=== PATIENT | male | born 1960 | race Caucasian/White ===

== ENCOUNTER 2017-08-13 08:29 | Inpatient (IN) | payer OTHER ==
[~2017-08-13] VITALS: Ht 180.3 cm; Wt 134.9 kg
[~2017-08-13 08:29] MED LIST: AMARYL4 M1 PO; ANAPROX DS1 TAB PO; ATORVASTATIN CA10 MG PO; GLUCOPHAGE500 MG PO; JANUVIA100 M1 PO; LOPRESSOR 25MG25 MG PO; NEURONTIN300 MG PO; VITAMIN B COMPL1 CAP PO; VITAMIN D31000 UNI2 PO
--- NOTE | 2017-08-13 08:46 | ED GENERAL ADULT ---
History of Present Illness General Chief Complaint: General Adult Stated Complaint: "MY RT HEEL IS BLACK" Source: patient, family Exam Limitations: no limitations Vital Signs & Intake/Output Vital Signs & Intake/Output Vital Signs Date Time Temp Pulse Resp B/P B/P Pulse O2 O2 Flow FiO2 Mean Ox Delivery Rate 08/13 1918 97.9 97 20 176/96 99 Nasal 2.0L Cannula 08/13 1406 98.8 81 20 128/70 93 Room Air 08/13 1333 162/86 08/13 1328 100.0 89 20 179/86 98 Room Air 08/13 1050 75 18 180/96 97 Room Air 08/13 0834 97.6 88 18 137/71 96 Room Air Allergies Coded Allergies: NO KNOWN ALLERGIES (07/25/13) Reconcile Medications Cholecalciferol (Vitamin D3) 1,000 UNIT TABLET 1 TAB PO DAILY VITAMIN SUPPORT (Reported) Clopidogrel Bisulfate (Clopidogrel) 75 MG TABLET 1 TAB PO DAILY BLOOD THINNER (Reported) Glimepiride (Amaryl) 4 MG TABLET 1 TAB PO DAILY DIABETES (Reported) Lisinopril (Prinivil) (Unknown Strength) TABLET (Unknown Dose) PO DAILY HTN ( Reported) Sitagliptin Phosphate (Januvia) 100 MG TABLET 1 TAB PO DAILY DIABETES ( Reported) Triage Note: PT STATES THAT HE HAS NEUROPATHY AND THAT HE HAS BEEN SEEING A VASCULAR DR IN [place] AND THAT HE FEELS THE R FOOT IS NOT GETTING BETTER , STATES THAT HE HAS AN OPEN WOUND , STATES THAT THE DOCTOR CLEANED IT OUT , PT STATES THAT HE HAS A CRATER NOW WITH FOUL ODOR Triage Nurses Notes Reviewed? yes Onset: Abrupt Duration: day(s): Timing: recent history HPI: 08/13/17 57-year-old male with past medical history of diabetes and peripheral vascular disease presents to the emergency department with pain and foul-smelling discharge from his right heel. According to the patient he has a history of diabetes and has an ulcer that has been progressively getting larger and now it is foul-smelling. He denies fever. Past History Travel History Traveled to [place] past 21 day No Medical History Any Pertinent Medical History? 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 FATHER Relation not specified for: FH: diabetes mellitus Hx Contributory? No Review of Systems Review of Systems Constitutional: Denies: fever. EENTM: Reports: no symptoms. Respiratory: Reports: no symptoms. Cardiovascular: Reports: no symptoms. GI: Reports: no symptoms. Genitourinary: Reports: no symptoms. Musculoskeletal: Reports: see HPI. Skin: Reports: see HPI. Neurological/Psychological: Reports: no symptoms. Hematologic/Endocrine: Reports: no symptoms. Immunologic/Allergic: Reports: no symptoms. Physical Exam Physical Exam General Appearance: alert, awake, anxious, moderate distress Head: atraumatic, normal appearance Eyes: Bilateral: normal appearance (yes by MEANS), PERRL, EOMI. Ears, Nose, Throat: normal pharynx (all to the thrombin) Neck: normal inspection, supple Respiratory: normal breath sounds, chest non-tender, no respiratory distress Cardiovascular: regular rate/rhythm Peripheral Pulses: 2+ dorsalis pedis (R) Gastrointestinal: soft, non-tender Back: normal range of motion Extremities: pedal edema Neurologic/Psych: no motor/sensory deficits, awake, alert, oriented x 3 Skin: ulcer Comments: 08/13/17 10 AM The patient has decreased sensation to the lower extremities bilaterally. He has bilateral lower extremity edema. He has normal capillary refill, less than 2 seconds to both feet. He does have bilateral dorsalis pedis pulses. On the right foot. He has a 2 cm necrotic ulceration on the lateral aspect of his right heel. It is foul-smelling. He also has swelling of the ankle. Core Measures ACS in differential dx? No CVA/TIA Diagnosis: No Sepsis Present: No Sepsis Focused Exam Completed? No Progress Differential Diagnoses I considered the following diagnoses in my evaluation of the patient: [ Osteomyelitis, peripheral vascular disease, gangrenous ulcer] Plan of Care: Orders Procedure Date/time Status MRI-RT FOOT W/O LIAN 08/14 1216 Active CBC WITHOUT DIFFERENTIAL 08/14 0600 Active BASIC ELECTROLYTES PLUS BUN&CR 08/14 0600 Active Nothing by Mouth 08/13 D Active EXTREMETIES OR SPEC 08/13 1804 Active PATHOLOGY SPECIMEN 08/13 1744 Active EKG 08/13 1700 Active Weight 08/13 1423 Active Vital Signs 08/13 1423 Active Teach/Educate 08/13 1423 Active Pain Treatment and Response 08/13 1423 Active Nutritional Intake, Monitor 08/13 1423 Active Isolation 08/13 1423 Active Intake & Output 08/13 1423 Active Patient Care Conference 08/13 1423 Active Activity/Ambulation 08/13 1423 Active FingerStick- Glucose 08/13 1335 Active Pathway - chart 08/13 1323 Active House Staff 08/13 1323 Active Code Status 08/13 1323 Active Intake & Output 08/13 1256 Active Patient Data 08/13 1254 Active ED Holding Orders 08/13 1250 Active Admit to inpatient 08/13 1250 Active Vital Signs 08/13 1250 Active Code Status 08/13 1250 Complete BLOOD CULTURE 08/13 0947 Active WESTERGREN SED RATE 08/13 0906 Complete COMPREHENSIVE METABOLIC PANEL 08/13 0906 Complete CBC WITHOUT DIFFERENTIAL 08/13 0906 Complete Current Medications Sig/Sherita Start time Last Medication Dose Stop Time Status Admin Amlodipine Besylate 5 MG DAILY 08/14 1000 AC (Norvasc) Clopidogrel Bisulfate 75 MG DAILY 08/14 1000 AC (Plavix) Ampicillin Sodium/ 3,000 MG Q8 08/13 2200 AC 08/13 Sulbactam Sodium 2101 (Unasyn) Sodium Chloride 100 ML (Normal Saline 0.9%) Insulin Aspart 0 TIDAC 08/13 1700 AC (NovoLOG) Acetaminophen 325 MG Q6P PRN 08/13 1515 AC (Tylenol) Sodium Chloride 1,000 ML Q13H 08/13 1515 AC 08/13 (Half Normal Saline) 1612 Heparin Sodium 5,000 UNIT Q8 08/13 1400 AC 08/13 (Porcine) 2058 Laboratory Tests 08/13/17 0930: Anion Gap 14, Estimated GFR 42 L, BUN/Creatinine Ratio 25.9 H, Glucose 131 H, Calcium 9.2, Total Bilirubin 0.5, AST 17, ALT 30, Alkaline Phosphatase 68, Total Protein 6.8, Albumin 3.5, Globulin 3.3, Albumin/Globulin Ratio 1.1, CBC w Diff NO MAN DIFF REQ, RBC 3.77 L, MCV 83.9, MCH 27.8, MCHC 33.2, RDW 14.2, MPV 7.4, Gran % 86.6 H, Lymphocytes % 6.9 L, Monocytes % 5.3, Eosinophils % 0.6, Basophils % 0.6, Absolute Granulocytes 8.8 H, Absolute Lymphocytes 0.7 L, Absolute Monocytes 0.5, Absolute Eosinophils 0.1, Absolute Basophils 0.1, ESR Westergren 110 H Microbiology 08/13 1799 EXTREMITIE: Gross Specimen Examination - RECD 08/13 1799 EXTREMITIE: Gram Stain - RECD 08/13 954 BLOOD: Blood Culture - RECD 08/13 949 BLOOD: Blood Culture - RECD Initial ED EKG: none Departure Departure Disposition: STILL A PATIENT Condition: Stable Clinical Impression Primary Impression: Infected stasis ulcer of right lower extremity Secondary Impressions: Diabetes mellitus, Peripheral vascular disease Referrals: Jonny Terrazas MD Departure Forms: Customer Survey General Discharge Information Admission Note Spoke With: Lebron LOWE,Dania Documentation of Exam: Documentation of any treatments & extenuating circumstances including Concerns Regarding Discharge (functional status, medication knowledge or non-compliance, living conditions, etc.) that warrant an admission rather than observation: [The patient is being admitted for podiatry consult, debridement of infected ulcer, operative care and possible IV antibiotics,] Critical Care Note Critical Care Note Critical Care Time: non-applicable
[2017-08-13] MEDS ORDERED: CLOPIDOGREL75 M1 PO (09:39)
[2017-08-13 09:40] LABS: ABSOLUTE BASOPHIL COUNT 0.1 /CUMM (0.0-0.2); ABSOLUTE EOSINOPHIL COUNT 0.1 /CUMM (0.0-0.7); ABSOLUTE GRANULOCYTE CT 8.8 /CUMM (1.4-6.5); ABSOLUTE LYMPH COUNT 0.7 /CUMM (1.2-3.4); ABSOLUTE MONOCYTE COUNT 0.5 /CUMM (0.10-0.60); BASOPHIL % 0.6 % (0.0-2.0); EOSINOPHIL % 0.6 % (0-5); HEMATOCRIT 31.6 % (42-52); MEAN CORPUSCULAR HGB 27.8 PG (27.0-31.0); MEAN CORPUSCULAR HGB CONC 33.2 G/DL (33.0-37.0); MEAN CORPUSCULAR VOLUME 83.9 FL (80.0-94.0); MEAN PLATELET VOLUME 7.4 FL (7.4-10.4); PLATELET COUNT 292 /CUMM (130-400); RBC DISTRIBUTION WIDTH 14.2 % (11.5-14.5); RED BLOOD CELL CT 3.77 /CUMM (4.70-6.10); WHITE BLOOD CELL COUNT 10.1 /CUMM (4.8-10.8)
[2017-08-13 09:56] LABS: GRANULOCYTE % 86.6 % (42.2-75.2)
--- NOTE | 2017-08-13 10:01 | RADIOLOGY REPORT ---
EXAMINATION: XR FOOT, RIGHT CLINICAL INFORMATION: Foot ulcer COMPARISON: None TECHNIQUE: Right foot, 3 views FINDINGS: The specific site of the ulcer is not marked on the radiographs. Query whether patient has a superficial ulcer at the heel; there appears to be a skin defect in this location. There are prominent enthesophytes of the calcaneus. Bones have normal alignment and joint spaces are maintained. No fracture, subluxation, osseous erosion or periostitis. Soft tissues are swollen throughout the ankle and foot. Peripheral vessels are calcified. IMPRESSION: 1. No evidence of osteomyelitis within the right foot. 2. Diffuse soft tissue swelling of the foot and ankle. 3. Peripheral vascular disease.
[2017-08-13] MEDS ORDERED: PRINIVIL20 M1 PO (13:03)
--- NOTE | 2017-08-13 13:27 | History & Physical ---
Carlton LOWE,[facility] 08/13/17 1326: General Information and HPI MD Statement: I have seen and personally examined JUANITO PERDOMO and documented this H&P. The patient is a 57 year old M who presented with a patient stated chief complaint of [right ankle swelling, warmth, and tenderness]. Source of Information: patient, old records Exam Limitations: no limitations History of Present Illness: 57-year-old male with PMH of NIDDM, HTN, and PVD presents with a chief complaint of right heel ulcer surrounded by erythema and swelling. 3 months ago he noticed multiple small ulcer on his right heel, he was told that these are 2/2 diabetes or peripheral vascular disease. He was sent to vascular service after which she was admitted to [facility] for further workup, he went through some vascular procedure to dilate his artery but he is not sure if stents were placed. For the past month and a half he's been complaining of progressive right heel pain, swelling, warmth and erythema. His right heel ulcer increased in size and that, recently it became black in color with foul-smelling discharge. He denies fever or chills. Allergies/Medications Allergies: Coded Allergies: NO KNOWN ALLERGIES (07/25/13) Home Med list Cholecalciferol (Vitamin D3) 1,000 UNIT TABLET 1 TAB PO DAILY VITAMIN SUPPORT (Reported) Clopidogrel Bisulfate (Clopidogrel) 75 MG TABLET 1 TAB PO DAILY BLOOD THINNER (Reported) Glimepiride (Amaryl) 4 MG TABLET 1 TAB PO DAILY DIABETES (Reported) Lisinopril (Prinivil) (Unknown Strength) TABLET (Unknown Dose) PO DAILY HTN ( Reported) Sitagliptin Phosphate (Januvia) 100 MG TABLET 1 TAB PO DAILY DIABETES ( Reported) Past History Travel History Traveled to [place] past 21 day No Medical History Neurological: NONE EENT: NONE Cardiovascular: CHF, hypertension Respiratory: NONE Gastrointestinal: NONE Hepatic: NONE Renal: NONE Musculoskeletal: NONE Psychiatric: NONE Endocrine: diabetes Blood Disorders: NONE Cancer(s): 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 FATHER Relation not specified for: FH: diabetes mellitus Psychosocial History Services at Home: None ETOH Use: occasional use Illicit Drug Use: denies illicit drug use Review of Systems Review of Systems Constitutional: Denies: chills, diaphoresis, fever, weakness. EENTM: Denies: visual changes, hearing changes. Cardiovascular: Reports: peripheral edema. Denies: chest pain, orthopena, palpitations, syncope. Respiratory: Denies: cough, short of breath, wheezing. GI: Denies: constipation, diarrhea, nausea, vomiting. Genitourinary: Denies: dysuria. Musculoskeletal: Denies: back pain. Skin: Reports: erythema (on right feet). Exam & Diagnostic Data Last 24 Hrs of Vital Signs/I&O Vital Signs Date Time Temp Pulse Resp B/P B/P Pulse O2 O2 Flow FiO2 Mean Ox Delivery Rate 08/13 1406 98.8 81 20 128/70 93 Room Air 08/13 1333 162/86 08/13 1328 100.0 89 20 179/86 98 Room Air 08/13 1050 75 18 180/96 97 Room Air 08/13 0834 97.6 88 18 137/71 96 Room Air Intake & Output 08/13 1600 08/13 0800 08/13 0000 Intake Total 0 Output Total Balance 0 Intake, Oral 0 Patient 133.81 kg Weight Weight Reported by Patient Measurement Method Physical Exam General Appearance Alert, Oriented X3, Cooperative, No Acute Distress Skin 4X5 cm right heel ulcer over the lateral side, surrounded by erythema and swelling. Warm right leg up to the knee HEENT Atraumatic, PERRLA, EOMI, Mucous Membr. moist/pink Neck No JVD Cardiovascular Regular Rate, Normal S1, Normal S2, No Murmurs Lungs Clear to Auscultation, Normal Air Movement Abdomen Soft, No Tenderness Neurological Normal Speech Extremities No Clubbing, No Cyanosis, right leg swelling. Right heel ulcer Last 24 Hrs of Labs/Pb: Laboratory Tests 08/13/17 0930: Anion Gap 14, Estimated GFR 42 L, BUN/Creatinine Ratio 25.9 H, Glucose 131 H, Calcium 9.2, Total Bilirubin 0.5, AST 17, ALT 30, Alkaline Phosphatase 68, Total Protein 6.8, Albumin 3.5, Globulin 3.3, Albumin/Globulin Ratio 1.1, CBC w Diff NO MAN DIFF REQ, RBC 3.77 L, MCV 83.9, MCH 27.8, MCHC 33.2, RDW 14.2, MPV 7.4, Gran % 86.6 H, Lymphocytes % 6.9 L, Monocytes % 5.3, Eosinophils % 0.6, Basophils % 0.6, Absolute Granulocytes 8.8 H, Absolute Lymphocytes 0.7 L, Absolute Monocytes 0.5, Absolute Eosinophils 0.1, Absolute Basophils 0.1, ESR Westergren 110 H Microbiology 08/13 954 BLOOD: Blood Culture - RECD 08/13 949 BLOOD: Blood Culture - RECD Assessment/Plan Assessment: 57-year-old male with a past medical history of diabetes, hypertension, peripheral vascular disease status post vascular procedure most likely stenting who presented complaining of 45 days of progressive right heel ulcer that's painful and with foul-smelling discharge. On exam he had right ankle ulcer that 's a rounded with erythematous, swelling and tenderness that most likely represent cellulitis. It's not clear if he has osteomyelitis but given the length of his symptom will need to be excluded. He is scheduled for podiatry procedure later today. We will hold off antibiotic to increase the sensitivity of the bone culture. The patient was started 3 days ago on lisinopril for blood pressure control, he was found to have creatinine of 1.7 which was normal a week ago. #Right ankle ulcer with swelling up to the knee with possible ankle osteomyelitis * We will admit to general medicine floor * We will keep nothing by mouth for I&D and possible plan culture later today * We will add ESR to be used as a baseline * MRN bite to the right ankle * We will consult ID for antibiotic recommendation * We will rule out DVT with LE Doppler. #NIDDM * Diabetic diet * Fingerstick glucose level * We will hold all oral antihyperglycemic medication and start insulin sliding scale #HTN/JAZMIN * Creatinine is up to 1.7 from normal last week, this could be secondary to starting lisinopril 3 days ago. Given the peripheral artery disease it's possible that he has renal artery stenosis. * For now we will hold lisinopril * We will control blood pressure with amlodipine * IV fluid and total tolerate oral * Repeat renal function daily #PVD * The patient has peripheral artery procedure done 45 days ago, he is not sure what kind of procedure exactly of from the way he described it looks like the was stenting. * We will obtain records from [facility] * We will continue clopidogrel As Ranked By This Provider Problem List: 1. Acute kidney injury 2. Hypertension 3. 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
[2017-08-13 14:06] VITALS: BP 128/70
--- NOTE | 2017-08-13 15:05 | PN- Att Addend ---
Attending Addendum Attending Brief Note 57-year-old male with past medical history significant for diabetes, hypertension, chronic diastolic CHF, peripheral vascular disease and as reported by patient status post either stents or balloon in right lower extremity who presented with unhealing right foot wound. Would start approximately 3 months ago. He claims that he has followed with his doctor. Over the course of time it has gotten worse. Now he has a wound on the right heel with surrounding area erythematous, right lower extremity is slightly erythematous with warmth. Patient denies having any fevers. He has neuropathy in bilateral lower extremities but still complains of pain around that area of the wound. Podiatry was consulted from the emergency room and they agreed to take the OR today for debridement. Vital Signs Date Time Temp Pulse Resp B/P B/P Pulse O2 O2 Flow FiO2 Mean Ox Delivery Rate 08/13 1406 98.8 81 20 128/70 93 Room Air 08/13 1333 162/86 08/13 1328 100.0 89 20 179/86 98 Room Air 08/13 1050 75 18 180/96 97 Room Air 08/13 0834 97.6 88 18 137/71 96 Room Air on exam; aox3, nad. cv; s1,s2, rrr resp; clear abd; soft, nt, bs+ ext; no edema, Laboratory Tests 08/13 0930 Chemistry Sodium (137 - 145 mmol/L) 138 Potassium (3.5 - 5.1 mmol/L) 4.7 Chloride (98 - 107 mmol/L) 100 Carbon Dioxide (22 - 30 mmol/L) 23 Anion Gap (5 - 16) 14 BUN (9 - 20 mg/dL) 44 H Creatinine (0.7 - 1.2 mg/dL) 1.7 H Estimated GFR (>60 ml/min) 42 L BUN/Creatinine Ratio (7 - 25 %) 25.9 H Glucose (65 - 99 mg/dL) 131 H Calcium (8.4 - 10.2 mg/dL) 9.2 Total Bilirubin (0.2 - 1.3 mg/dL) 0.5 AST (17 - 59 U/L) 17 ALT (21 - 72 U/L) 30 Alkaline Phosphatase (< 127 U/L) 68 Total Protein (6.3 - 8.2 g/dL) 6.8 Albumin (3.5 - 5.0 g/dL) 3.5 Globulin (1.9 - 4.2 gm/dL) 3.3 Albumin/Globulin Ratio (1.1 - 2.2 %) 1.1 Hematology CBC w Diff NO MAN DIFF REQ WBC (4.8 - 10.8 /CUMM) 10.1 RBC (4.70 - 6.10 /CUMM) 3.77 L Hgb (14.0 - 18.0 G/DL) 10.5 L Hct (42 - 52 %) 31.6 L MCV (80.0 - 94.0 FL) 83.9 MCH (27.0 - 31.0 PG) 27.8 MCHC (33.0 - 37.0 G/DL) 33.2 RDW (11.5 - 14.5 %) 14.2 Plt Count (130 - 400 /CUMM) 292 MPV (7.4 - 10.4 FL) 7.4 Gran % (42.2 - 75.2 %) 86.6 H Lymphocytes % (20.5 - 51.1 %) 6.9 L Monocytes % (1.7 - 9.3 %) 5.3 Eosinophils % (0 - 5 %) 0.6 Basophils % (0.0 - 2.0 %) 0.6 Absolute Granulocytes (1.4 - 6.5 /CUMM) 8.8 H Absolute Lymphocytes (1.2 - 3.4 /CUMM) 0.7 L Absolute Monocytes (0.10 - 0.60 /CUMM) 0.5 Absolute Eosinophils (0.0 - 0.7 /CUMM) 0.1 Absolute Basophils (0.0 - 0.2 /CUMM) 0.1 ESR Westergren (0 - 10 MM) 110 H Xray right foot: IMPRESSION: 1. No evidence of osteomyelitis within the right foot. 2. Diffuse soft tissue swelling of the foot and ankle. 3. Peripheral vascular disease. A/P; 57-year-old male with past medical history significant for diabetes, hypertension, chronic diastolic CHF, peripheral vascular disease and as reported by patient status post either stents or balloon in right lower extremity admitted with right foot nonhealing diabetic ulcer possible osteomyelitis. Patient also has mild JAZMIN likely secondary to dehydration Patient admitted to medicine. Patient will for MRI. Patient will be seen by podiatry for possible debridement. Please consult infectious disease. Will obtain right lower extremity venous Doppler ultrasound to rule out DVT. Antibiotics will be deferred to infectious disease postoperatively. Patient will be covered with sliding scale insulin for his diabetes. He does have a mild JAZMIN. He will be hydrated with IV fluids. Monitor his creatinine. Will avoid any nephrotoxic medications. We'll hold his lisinopril. DVT prophylaxis: Heparin subcutaneous. Patient is a full code.
--- NOTE | 2017-08-13 16:16 | Cons- Infect Disease ---
General Information and HPI Consulting Request Date of Consult: 08/13/17 Requested By: Dania Diana MD Reason for Consult: Rule out osteomyelitis of the right heel Source of Information: patient History of Present Illness: This is a 57-year-old man with a history of hypertension, atrial fibrillation, diastolic CHF, diabetes, peripheral vascular disease, with a chronic right heel ulcer for the past 2 months, status post bilateral lower extremity angioplasties and stent placements at [facility] 6 weeks prior to admission, managed since then with periodic debridements, admitted today after presenting to the emergency room with increasing pain, erythema and edema of the right heel with no fevers or chills. On admission he was febrile to 100. Laboratory data revealed a white blood cell count of 10,000, ESR 110, BUN/creatinine 44 and 1.7, with normal liver enzymes. X-ray of the right foot reveals diffuse soft tissue swelling of the foot and ankle with no evidence of osteomyelitis. He is scheduled for debridement in the OR later today. Allergies/Medications Allergies: Coded Allergies: NO KNOWN ALLERGIES (07/25/13) Home Med List: Cholecalciferol (Vitamin D3) 1,000 UNIT TABLET 1 TAB PO DAILY VITAMIN SUPPORT (Reported) Clopidogrel Bisulfate (Clopidogrel) 75 MG TABLET 1 TAB PO DAILY BLOOD THINNER (Reported) Glimepiride (Amaryl) 4 MG TABLET 1 TAB PO DAILY DIABETES (Reported) Lisinopril (Prinivil) (Unknown Strength) TABLET (Unknown Dose) PO DAILY HTN ( Reported) Sitagliptin Phosphate (Januvia) 100 MG TABLET 1 TAB PO DAILY DIABETES ( Reported) Past History Travel History Traveled to [place] past 21 day No Medical History Blood Transfusion Hx: No Neurological: NONE EENT: NONE Cardiovascular: AFIB, diastolic CHF, hypertension Respiratory: NONE Gastrointestinal: NONE Hepatic: NONE Renal: NONE Musculoskeletal: NONE Psychiatric: NONE Endocrine: diabetes Blood Disorders: NONE Cancer(s): NONE [employer]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 FATHER Relation not specified for: FH: diabetes mellitus Psychosocial History Services at Home: None Smoking Status: Never Smoked ETOH Use: occasional use Illicit Drug Use: denies illicit drug use Review of Systems Review of Systems All Other Systems: Reviewed and Negative Exam & Diagnostic Data Last 24 Hrs of Vital Signs/I&O Vital Signs Date Time Temp Pulse Resp B/P B/P Pulse O2 O2 Flow FiO2 Mean Ox Delivery Rate 08/13 1406 98.8 81 20 128/70 93 Room Air 08/13 1333 162/86 08/13 1328 100.0 89 20 179/86 98 Room Air 08/13 1050 75 18 180/96 97 Room Air 08/13 0834 97.6 88 18 137/71 96 Room Air Intake & Output 08/13 1600 08/13 0800 08/13 0000 Intake Total 0 Output Total Balance 0 Intake, Oral 0 Patient 295 lb Weight Weight Reported by Patient Measurement Method Physical Exam Other Physical Findings: MAXIMUM TEMPERATURE 100. He is awake and alert in no acute distress. Skin reveals multiple tattoos. HEENT negative. Neck is supple with no adenopathy. Lungs are clear. Heart regular rhythm with no murmur. Abdomen is obese, soft, nontender with positive bowel sounds. Back no CVA tenderness. Extremities right heel necrotic wound, with surrounding erythema, edema and induration, with 2+ edema and warmth of the right lower extremity; pulses 1+. Neuro neuropathy both feet. Last 24 Hours of Lab Results: Laboratory Tests 08/13 0930 Chemistry Sodium (137 - 145 mmol/L) 138 Potassium (3.5 - 5.1 mmol/L) 4.7 Chloride (98 - 107 mmol/L) 100 Carbon Dioxide (22 - 30 mmol/L) 23 Anion Gap (5 - 16) 14 BUN (9 - 20 mg/dL) 44 H Creatinine (0.7 - 1.2 mg/dL) 1.7 H Estimated GFR (>60 ml/min) 42 L BUN/Creatinine Ratio (7 - 25 %) 25.9 H Glucose (65 - 99 mg/dL) 131 H Calcium (8.4 - 10.2 mg/dL) 9.2 Total Bilirubin (0.2 - 1.3 mg/dL) 0.5 AST (17 - 59 U/L) 17 ALT (21 - 72 U/L) 30 Alkaline Phosphatase (< 127 U/L) 68 Total Protein (6.3 - 8.2 g/dL) 6.8 Albumin (3.5 - 5.0 g/dL) 3.5 Globulin (1.9 - 4.2 gm/dL) 3.3 Albumin/Globulin Ratio (1.1 - 2.2 %) 1.1 Hematology CBC w Diff NO MAN DIFF REQ WBC (4.8 - 10.8 /CUMM) 10.1 RBC (4.70 - 6.10 /CUMM) 3.77 L Hgb (14.0 - 18.0 G/DL) 10.5 L Hct (42 - 52 %) 31.6 L MCV (80.0 - 94.0 FL) 83.9 MCH (27.0 - 31.0 PG) 27.8 MCHC (33.0 - 37.0 G/DL) 33.2 RDW (11.5 - 14.5 %) 14.2 Plt Count (130 - 400 /CUMM) 292 MPV (7.4 - 10.4 FL) 7.4 Gran % (42.2 - 75.2 %) 86.6 H Lymphocytes % (20.5 - 51.1 %) 6.9 L Monocytes % (1.7 - 9.3 %) 5.3 Eosinophils % (0 - 5 %) 0.6 Basophils % (0.0 - 2.0 %) 0.6 Absolute Granulocytes (1.4 - 6.5 /CUMM) 8.8 H Absolute Lymphocytes (1.2 - 3.4 /CUMM) 0.7 L Absolute Monocytes (0.10 - 0.60 /CUMM) 0.5 Absolute Eosinophils (0.0 - 0.7 /CUMM) 0.1 Absolute Basophils (0.0 - 0.2 /CUMM) 0.1 ESR Westergren (0 - 10 MM) 110 H Last 24 Hours of Pb Results: Blood cultures August 13 negative Diagnostic Data Recent Imaging Findings: X-ray of the right foot August 13 reveals diffuse soft tissue swelling of the foot and ankle with no evidence of osteomyelitis Assessment/Plan Assessment/Plan Impression: This is a 57-year-old man with a history of diabetes, peripheral vascular disease, with a chronic right heel ulcer for the past 2 months, status post bilateral lower extremity angioplasties and stent placements at [facility] 6 weeks prior to admission, admitted today with increasing pain, erythema and edema of the right heel with no fevers or chills, found to have a low-grade fever with a normal white blood cell count and renal insufficiency, with an x- ray of the right foot negative for evidence of osteomyelitis. His clinical picture is consistent with osteomyelitis of the right heel despite the negative x-ray, and an MRI has been ordered. This has been delayed, unfortunately, pending further information regarding his recent stents. He is scheduled for the OR later today for debridement of the heel ulcer, and he can be covered empirically with antibiotics after surgery pending OR cultures. He will likely require a prolonged course of antibiotics for osteomyelitis based on these OR cultures. His renal insufficiency may be secondary to sepsis and will need to follow closely. Suggestion: 1. Await MRI of the right foot 2. Await debridement in the OR later today 3. Vascular surgery evaluation 4. Begin Unasyn 3 g IV every 8 hours pending OR cultures Consult Acknowledgment - Thank you for your consult request.
--- NOTE | 2017-08-13 16:27 | ULTRASOUND REPORT ---
EXAMINATION: US TRIPLEX LOWER EXTREMITY, RIGHT CLINICAL INFORMATION: Right lower extremity swelling and tenderness COMPARISON: None TECHNIQUE: Color-flow triplex imaging with spectral analysis and compression Doppler were performed on the lower extremity. FINDINGS: Respiratory variation, normal compression and augmented flow are noted throughout the lower extremity. The visualized common femoral vein, superficial femoral vein, profunda femoral vein, popliteal vein and midcalf peroneal and posterior tibial venous segments show no evidence of deep venous thrombosis. There is no Carrington's cyst. IMPRESSION: Normal triplex scan without evidence of deep venous thrombosis involving the lower extremity.
--- NOTE | 2017-08-13 18:13 | Operative Report ---
Operative/Inv Procedure Report Surgery Date: 08/13/17 Name of Procedure: 1 Open incision and drainage deep to the D fashion with exposure of the flexor tendon and tendon sheath multiple sites right foot 2 intraoperative administration of ankle block anesthesia 3 excisional debridement Pre-Operative Diagnosis: 1 open necrotic wound right foot 2 suspected osteomyelitis 3 diabetic peripheral neuropathy Post-Operative Diagnosis: Same Estimated Blood Loss: less than 50ml Surgeon/Excavator Backhoe Operator: SALLIE EDWARDS DPM Anesthesia: moderate sedation, block Operative/Procedure Note Note: After obtaining informed consent the patient was brought to the operating room and placed on the operating table in the supine position. The patient isn't securely fastened to the operating table utilizing safety belt. After administration of IV sedation, 10 mL of 0.5% Marcaine plain was infiltrated about the patient's right ankle. The right foot and ankle within scrubbed prepped and draped in usual aseptic manner. Attention directed directed to the inferior margin of the right heel, where a large full-thickness necrotic was identified. 50 blade visualized sharply revised skin margins. The dissection was then carried down deep to the D fashion with exposure of the plantar fascia. All necrotic nonviable infected tissue sharply evacuated from the wound bed. Specimen was harvested for both microbiologic and pathologic inspection. There is no exposed bone identified and the periosteum overlying the calcaneus appeared intact. Nipple was then irrigated with 3 L of normal sterile saline fissure 50,000 units of bacitracin. Following this, the foot was redraped and the surgeon's top was changed clean gloves. Any bleeding vessels identified were cauterized or ligated as encountered. Nipple was then packed with iodoform followed by 4 x 4's Kerlix and an Pb wrap. The patient was noted tolerable to procedure and anesthesia well and the patient was transported from the operating room to recovery with vital signs stable best assess intact all digits right foot.
[2017-08-13 19:18] VITALS: BP 176/96
[2017-08-13 22:39] VITALS: BP 148/90
[2017-08-14 06:47] VITALS: BP 114/68
[2017-08-14 08:12] LABS: ABSOLUTE BASOPHIL COUNT 0 /CUMM (0.0-0.2); ABSOLUTE EOSINOPHIL COUNT 0 /CUMM (0.0-0.7); ABSOLUTE GRANULOCYTE CT 6.5 /CUMM (1.4-6.5); ABSOLUTE LYMPH COUNT 0.8 /CUMM (1.2-3.4); ABSOLUTE MONOCYTE COUNT 0.5 /CUMM (0.10-0.60); BASOPHIL % 0.2 % (0.0-2.0); EOSINOPHIL % 0.5 % (0-5); GRANULOCYTE % 83.3 % (42.2-75.2); HEMATOCRIT 30.3 % (42-52); MEAN CORPUSCULAR HGB 27.8 PG (27.0-31.0); MEAN CORPUSCULAR HGB CONC 33.2 G/DL (33.0-37.0); MEAN CORPUSCULAR VOLUME 83.9 FL (80.0-94.0); MEAN PLATELET VOLUME 7.6 FL (7.4-10.4); PLATELET COUNT 252 /CUMM (130-400); RBC DISTRIBUTION WIDTH 13.9 % (11.5-14.5); RED BLOOD CELL CT 3.62 /CUMM (4.70-6.10); WHITE BLOOD CELL COUNT 7.8 /CUMM (4.8-10.8)
--- NOTE | 2017-08-14 10:03 | PN- Housestaff ---
Subjective Follow-up For: Nonhealing right heel ulcer surrounded by cellulitis HTN DM PVD Referring neuropathy Possible similar lites Subjective: Afebrile, hemodynamically stable, and saturating well on room air. The patient reports significant pain on his right ankle after debridement procedure yesterday. His pain did not response to one dose Percocet one dose of Roxicodone. He denies any other current active complaints. No acute overnight event with reports Review of Systems Constitutional: Reports: see HPI. Objective Last 24 Hrs of Vital Signs/I&O Vital Signs Date Time Temp Pulse Resp B/P B/P Pulse O2 O2 Flow FiO2 Mean Ox Delivery Rate 08/14 0747 98.2 79 20 114/68 08/14 0647 98.2 79 20 114/68 96 Room Air 08/14 0000 98 Nasal 2.0L Cannula 08/13 2239 98.2 80 20 148/90 98 Nasal 2.0L Cannula 08/13 1918 97.9 97 20 176/96 99 Nasal 2.0L Cannula 08/13 1406 98.8 81 20 128/70 93 Room Air 08/13 1333 162/86 08/13 1328 100.0 89 20 179/86 98 Room Air Intake & Output 08/14 1600 08/14 0800 08/14 0000 Intake Total 840 1080 Output Total 600 200 Balance 240 880 Intake, IV 600 600 Intake, Oral 240 480 Output, Urine 600 200 Physical Exam General Appearance: Alert, Oriented X3, Cooperative, No Acute Distress Skin: No Rashes HEENT: Atraumatic, PERRLA, EOMI, Mucous Membr. moist/pink Neck: No JVD Cardiovascular: Regular Rate, Normal S1, Normal S2, No Murmurs Lungs: Clear to Auscultation, Normal Air Movement Abdomen: Soft, No Tenderness Neurological: Normal Speech, Strength at 5/5 X4 Ext Extremities: No Clubbing, No Cyanosis, No Edema, Normal Pulses, bright ankle bandage Current Medications: Current Medications Sig/Sherita Start time Last Medication Dose Route Stop Time Status Admin Acetaminophen 650 MG Q6P PRN 08/14 0915 AC PO Acetaminophen 325 MG Q6P PRN 08/13 1515 DC 08/14 PO 0201 Amlodipine Besylate 5 MG DAILY 08/14 1000 AC 08/14 PO 0747 Ampicillin Sodium/ 3,000 MG Q8 08/13 2200 AC 08/14 Sulbactam Sodium IV 0515 Sodium Chloride 100 ML Clopidogrel Bisulfate 75 MG DAILY 08/14 1000 AC 08/14 PO 0747 Heparin Sodium 5,000 UNIT Q8 08/13 1400 AC 08/14 (Porcine) SC 0516 Insulin Aspart 0 TIDAC 08/13 1700 AC SC Midazolam HCl 5 MG .STK-MED ONE 08/13 1730 DC IM 08/13 1731 Morphine Sulfate 2 MG 1230 08/14 1230 DC 08/14 IV 08/14 1231 1228 Oxycodone HCl 5 MG Q6 PRN 08/14 0915 DC 08/14 PO 0923 Oxycodone/ 1 TAB ONCE ONE 08/14 0500 DC 08/14 Acetaminophen PO 08/14 0501 0514 Sodium Chloride 1,000 ML Q13H 08/13 1515 AC 08/14 IV 0515 Last 24 Hrs of Lab/Pb Results Last 24 Hrs of Labs/Mics: Laboratory Tests 08/14/17 0724: Anion Gap 12, Estimated GFR > 60, BUN/Creatinine Ratio 23.6, CBC w Diff NO MAN DIFF REQ, RBC 3.62 L, MCV 83.9, MCH 27.8, MCHC 33.2, RDW 13.9, MPV 7.6, Gran % 83.3 H, Lymphocytes % 9.9 L, Monocytes % 6.1, Eosinophils % 0.5, Basophils % 0.2, Absolute Granulocytes 6.5, Absolute Lymphocytes 0.8 L, Absolute Monocytes 0.5, Absolute Eosinophils 0, Absolute Basophils 0 Microbiology 08/13 1800 EXTREMITIE: Gross Specimen Examination - RES STAPH AUREUS BETA STREP GROUP G GRAM NEGATIVE RODS 08/13 1800 EXTREMITIE: Gram Stain - RES Assessment/Plan Assessment: 57-year-old male presented with nonhealing ulcer, he has diabetes complicated with neuropathy and peripheral vascular disease, status post debridement of the right heel soft tissue yesterday without on biopsy. Soft tissue culture grew staph aureus, group G strep, and gram negative rods. Currently is in Unasyn with a Tmax of 100 overnight but without leukocytosis. He is complaining of severe uncontrolled right heel pain. Given the elevated ESR and chronic nonhealing ulcer osteomyelitis still high in the differential. DVT was ruled out with Doppler ultrasound. Plan #Right ankle ulcer with swelling up to the knee with possible ankle osteomyelitis * Right feet MRI after confirming the status of lower extremity stenting * Continue Unasyn, we will discuss with ID * We placed a consult with vascular service * We will follow final culture and sensitivity results. * Continue clopidogrel for PVD #NIDDM * Blood glucose level range from 100-150 * Diabetic diet * Fingerstick glucose level * Continue insulin sliding scale #HTN/JAZMIN * Creatinine improved from 1.7 down to 1.1 * Renal artery stenosis is possible given worsening creatinine 3 days after starting lisinopril and extensive history of peripheral vascular disease. * Continue holding lisinopril * Continue amlodipine * We'll DC fluid as he is tolerating oral * Repeat renal function in 48 hours. -FC -Diabetic diet -DVT prophylaxis with subcutaneous heparin Problem List: 1. Peripheral vascular disease 2. Infected stasis ulcer of right lower extremity Pain Ratin Pain Location: Right heel Pain Goal: Remain pain free Pain Plan: IV morphine Tomorrow's Labs & Rationales: No labs for tomorrow, we will repeat labs on Thursday morning
--- NOTE | 2017-08-14 11:24 | PN- Att Addend ---
Attending Addendum Attending Brief Note Patient seen and examined, still having some pain in the right foot and right heel. Status post debridement with Dr. Ward yesterday. Patient was also started on IV Unasyn per infectious disease. Vital Signs Date Time Temp Pulse Resp B/P B/P Pulse O2 O2 Flow FiO2 Mean Ox Delivery Rate 08/14 746 98.2 79 20 114/68 08/14 0647 98.2 79 20 114/68 96 Room Air 08/14 0000 98 Nasal 2.0L Cannula 08/13 2239 98.2 80 20 148/90 98 Nasal 2.0L Cannula 08/13 1918 97.9 97 20 176/96 99 Nasal 2.0L Cannula 08/13 1406 98.8 81 20 128/70 93 Room Air 08/13 1333 162/86 08/13 1328 100.0 89 20 179/86 98 Room Air on exam; aox3, nad. cv; s1,s2, rrr resp; clear abd; soft, nt, bs+ ext; trace edema. velia wrap on right foot. Laboratory Tests 08/15 723 Chemistry Sodium (137 - 145 mmol/L) 139 Potassium (3.5 - 5.1 mmol/L) 4.7 Chloride (98 - 107 mmol/L) 104 Carbon Dioxide (22 - 30 mmol/L) 22 Anion Gap (5 - 16) 12 BUN (9 - 20 mg/dL) 26 H Creatinine (0.7 - 1.2 mg/dL) 1.1 Estimated GFR (>60 ml/min) > 60 BUN/Creatinine Ratio (7 - 25 %) 23.6 Hematology CBC w Diff NO MAN DIFF REQ WBC (4.8 - 10.8 /CUMM) 7.8 RBC (4.70 - 6.10 /CUMM) 3.62 L Hgb (14.0 - 18.0 G/DL) 10.1 L Hct (42 - 52 %) 30.3 L MCV (80.0 - 94.0 FL) 83.9 MCH (27.0 - 31.0 PG) 27.8 MCHC (33.0 - 37.0 G/DL) 33.2 RDW (11.5 - 14.5 %) 13.9 Plt Count (130 - 400 /CUMM) 252 MPV (7.4 - 10.4 FL) 7.6 Gran % (42.2 - 75.2 %) 83.3 H Lymphocytes % (20.5 - 51.1 %) 9.9 L Monocytes % (1.7 - 9.3 %) 6.1 Eosinophils % (0 - 5 %) 0.5 Basophils % (0.0 - 2.0 %) 0.2 Absolute Granulocytes (1.4 - 6.5 /CUMM) 6.5 Absolute Lymphocytes (1.2 - 3.4 /CUMM) 0.8 L Absolute Monocytes (0.10 - 0.60 /CUMM) 0.5 Absolute Eosinophils (0.0 - 0.7 /CUMM) 0 Absolute Basophils (0.0 - 0.2 /CUMM) 0 A/P; 57-year-old male with past medical history significant for diabetes, hypertension, chronic diastolic CHF, peripheral vascular disease and as reported by patient status post either stents or balloon in right lower extremity admitted with right foot nonhealing diabetic ulcer possible osteomyelitis. Patient also had mild JAZMIN likely secondary to dehydration. Kidney function returned to normal. Patient underwent debridement by Dr. Ward yesterday. Has been started on IV Unasyn. Patient to get MRI and we are trying to get some information about his stents from [facility]. Please consult vascular surgery. Continue current pain management. DVT px: Heparin subcutaneous. Will discuss with Dr. Ward about further plan.
--- NOTE | 2017-08-14 13:05 | PN- Infect Dx ---
Subjective Subjective: MAXIMUM TEMPERATURE 100. He complains of severe pain in the right heel. Objective Last 24 Hrs of Vital Signs/I&O Vital Signs Date Time Temp Pulse Resp B/P B/P Pulse O2 O2 Flow FiO2 Mean Ox Delivery Rate 08/14 0747 98.2 79 20 114/68 08/14 0647 98.2 79 20 114/68 96 Room Air 08/14 0000 98 Nasal 2.0L Cannula 08/13 2239 98.2 80 20 148/90 98 Nasal 2.0L Cannula 08/13 1918 97.9 97 20 176/96 99 Nasal 2.0L Cannula 08/13 1406 98.8 81 20 128/70 93 Room Air 08/13 1333 162/86 08/13 1328 100.0 89 20 179/86 98 Room Air Intake & Output 08/14 1600 08/14 0800 08/14 0000 Intake Total 840 1080 Output Total 600 200 Balance 240 880 Intake, IV 600 600 Intake, Oral 240 480 Output, Urine 600 200 Physical Exam Other Physical Findings: He appears comfortable in no acute distress Lungs are clear Heart regular rhythm with no murmur Extremities right heel dressing intact Results Last 24 Hours of Lab Results: Laboratory Tests 08/14 07 Chemistry Sodium (137 - 145 mmol/L) 139 Potassium (3.5 - 5.1 mmol/L) 4.7 Chloride (98 - 107 mmol/L) 104 Carbon Dioxide (22 - 30 mmol/L) 22 Anion Gap (5 - 16) 12 BUN (9 - 20 mg/dL) 26 H Creatinine (0.7 - 1.2 mg/dL) 1.1 Estimated GFR (>60 ml/min) > 60 BUN/Creatinine Ratio (7 - 25 %) 23.6 Hematology CBC w Diff NO MAN DIFF REQ WBC (4.8 - 10.8 /CUMM) 7.8 RBC (4.70 - 6.10 /CUMM) 3.62 L Hgb (14.0 - 18.0 G/DL) 10.1 L Hct (42 - 52 %) 30.3 L MCV (80.0 - 94.0 FL) 83.9 MCH (27.0 - 31.0 PG) 27.8 MCHC (33.0 - 37.0 G/DL) 33.2 RDW (11.5 - 14.5 %) 13.9 Plt Count (130 - 400 /CUMM) 252 MPV (7.4 - 10.4 FL) 7.6 Gran % (42.2 - 75.2 %) 83.3 H Lymphocytes % (20.5 - 51.1 %) 9.9 L Monocytes % (1.7 - 9.3 %) 6.1 Eosinophils % (0 - 5 %) 0.5 Basophils % (0.0 - 2.0 %) 0.2 Absolute Granulocytes (1.4 - 6.5 /CUMM) 6.5 Absolute Lymphocytes (1.2 - 3.4 /CUMM) 0.8 L Absolute Monocytes (0.10 - 0.60 /CUMM) 0.5 Absolute Eosinophils (0.0 - 0.7 /CUMM) 0 Absolute Basophils (0.0 - 0.2 /CUMM) 0 Last 24 Hours of Pb Results: Blood cultures 2 August 13 negative OR culture August 13 labeled right foot soft tissue positive for Staph aureus, Group G strep and gram-negative rods Recent Imaging Studies: Doppler of the right lower extremity August 13 negative Assessment/Plan ID Impression: Stable, with temperatures and white blood cell count normal, on Unasyn status post debridement of the right heel soft tissue yesterday, with no exposed bone and with the periosteum overlying the calcaneus appearing intact. Given the chronicity of his ulcer underlying osteomyelitis remains a concern and he is scheduled for an MRI once his stents can be cleared. Suggestion: 1. Follow-up final OR cultures 2. Await MRI of the right foot 3. Vascular surgery evaluation 4. Continue Unasyn pending above
[2017-08-14 17:03] VITALS: BP 120/60
[2017-08-14 22:01] VITALS: BP 140/80
[2017-08-15 06:54] VITALS: BP 132/88
--- NOTE | 2017-08-15 09:11 | PN- Housestaff ---
See Addendum Subjective Follow-up For: Right heel chronic unhealed ulcer s/p incision and drainage Complaints: Pain on the right heel, 5/10 Subjective: Patient seen and examined, he is lying with the bed comfortable with some mild distress related to pain on his right heel which is about 5/10 in severity. Patient wants to know the results of MRI, he seems anxious about it, he wants to know if he is going to stay until next week. He remains afebrile overnight, other vitals stable Review of Systems Constitutional: Reports: no symptoms. EENTM: Reports: no symptoms. Cardiovascular: Reports: no symptoms. Respiratory: Reports: no symptoms. Gastrointestinal: Reports: no symptoms. Genitourinary: Reports: no symptoms. Musculoskeletal: Reports: see HPI. Skin: Reports: see HPI. Neurological/Psychological: Reports: no symptoms. Hematologic/Endocrine: Reports: no symptoms. Immunologic/Allergic: Reports: no symptoms. Objective Last 24 Hrs of Vital Signs/I&O Vital Signs Date Time Temp Pulse Resp B/P B/P Pulse O2 O2 Flow FiO2 Mean Ox Delivery Rate 08/15 0920 79 128/78 08/15 0654 98.0 78 20 132/88 94 Room Air 08/14 2201 98.6 86 20 140/80 97 08/14 1703 97.5 88 20 120/60 95 Intake & Output 08/15 1600 08/15 0800 08/15 0000 Intake Total 750 450 Output Total 400 250 Balance 350 200 Intake, IV 650 350 Intake, Oral 100 100 Output, Urine 400 250 Patient 289 lb Weight Physical Exam General Appearance: Alert, Oriented X3, Cooperative, No Acute Distress Skin: No Rashes, No Breakdown, right heel covered with clean bandage Skin Temp/Moisture Exam: Warm/Dry Sepsis Skin Exam (color): Normal for Ethnicity HEENT: Atraumatic, PERRLA, EOMI, Mucous Membr. moist/pink Neck: Supple, No JVD Cardiovascular: Regular Rate, Normal S1, Normal S2, No Murmurs Lungs: Clear to Auscultation, Normal Air Movement Abdomen: Normal Bowel Sounds, Soft, No Tenderness, No Hepatospenomegaly, No Masses Vascular: bilateral lower extremity pedal pulses appreciated Current Medications: Current Medications Sig/Sherita Start time Last Medication Dose Route Stop Time Status Admin Acetaminophen 650 MG Q6P PRN 08/14 0915 AC PO Amlodipine Besylate 5 MG DAILY 08/14 1000 AC 08/15 PO 0920 Ampicillin Sodium/ 3,000 MG Q8 08/13 2200 AC 08/15 Sulbactam Sodium IV 0538 Sodium Chloride 100 ML Clopidogrel Bisulfate 75 MG DAILY 08/14 1000 AC 08/15 PO 0919 Heparin Sodium 5,000 UNIT Q8 08/13 1400 AC 08/15 (Porcine) SC 0532 Insulin Aspart 0 TIDAC 08/13 1700 AC SC Morphine Sulfate 2 MG ONCE ONE 08/14 2100 DC 08/15 IV 08/14 2101 0532 Morphine Sulfate 2 MG 1230 08/14 1230 DC 08/14 IV 08/14 1231 1228 Oxycodone HCl 5 MG ONCE ONE 08/14 2045 CAN PO 08/14 204 Oxycodone HCl 5 MG Q6 PRN 08/14 0915 DC 08/14 PO 0923 Patient Medication 1 ED ONE ONE 08/14 1345 DC Teaching ED 08/14 1346 Sodium Chloride 1,000 ML Q13H 08/13 1515 AC 08/14 IV 2127 Last 24 Hrs of Lab/Pb Results Last 24 Hrs of Labs/Mics: No labs for today Assessment/Plan Assessment: A/P; 57-year-old male with past medical history significant for diabetes, hypertension, chronic diastolic CHF, peripheral vascular disease and as reported by patient status post either stents or balloon in right lower extremity admitted with right foot nonhealing diabetic ulcer status post open incision and debridement yesterday, with MRI done yesterday which showed large heel spur suggesting mild early osteomyelitis. Assessment and plan: #Right heel chronic and healed ulcer status post incision and debridement: * Per the patient there is a plan to take him back to OR for further debridement and placement of wound VAC * Patient may needs to be nothing by mouth after midnight on Thursday for further debridement on Thursday, please touch base with Dr. Ward tomorrow * MRI results suggesting early mild osteomyelitis currently the patient on IV Unasyn * Wound culture grew staph aureus, beta strep group G, gram-negative rods, pending sensitivity * Blood culture negative so far * Patient needs at least 4 weeks of antibiotic, The decision regarding antibiotic and duration based on culture sensitivity and ID recommendations #NIDDM: * Continue Accu-Chek, and insulin sliding scale * Diabetic diet #JAZMIN/resolved #History of hypertension: * Currently his blood pressure is well controlled on amlodipine 5 mg daily * If his blood pressure became an issue at any point resume his home dose of lisinopril, given that his kidney function back to baseline * We'll check his kidney function tomorrow -FC -Diabetic diet -DVT prophylaxis with subcutaneous heparin Problem List: 1. Diabetes 2. Open wound of right heel Pain Ratin Pain Location: right heel Pain Goal: Remain pain free Pain Plan: Morphine Tomorrow's Labs & Rationales: bep DVT/Prophylaxis: pharmacological
--- NOTE | 2017-08-15 10:50 | MRI REPORT ---
EXAMINATION: MR ANKLE WITHOUT CONTRAST, RIGHT CLINICAL INFORMATION: Nonhealing ulcer. COMPARISON: Radiographs 08/13/2017. TECHNIQUE: Multiplanar MR imaging was performed through the right ankle on a high-field scanner without intravenous contrast. FINDINGS: There is a large soft tissue defect involving the lateral aspect of the heel pad which extends to a large heel spur and the origin of the plantar fascia. The fascia appears intact. There is underlying marrow edema with slight loss of T1 marrow signal at the lateral aspect of the heel spur and the calcaneal tuberosity suggesting early osteomyelitis. There is diffuse subcutaneous edema. Diffuse edema of the intrinsic muscles of the foot which is not uncommon in diabetic patients. No focal fluid collection. [id number] degenerative changes at the tibiotalar joint and midfoot. IMPRESSION: Soft tissue ulcer as described extending to the lateral aspect of a large heel spur and the adjacent calcaneal tuberosity where there are marrow changes suggesting early or mild osteomyelitis.
[2017-08-15 14:33] VITALS: BP 134/62
[2017-08-15 22:08] VITALS: BP 130/80
[2017-08-16 06:00] VITALS: BP 132/84
[2017-08-16 08:30] LABS: ABSOLUTE BASOPHIL COUNT 0 /CUMM (0.0-0.2); ABSOLUTE EOSINOPHIL COUNT 0.1 /CUMM (0.0-0.7); ABSOLUTE GRANULOCYTE CT 4.3 /CUMM (1.4-6.5); ABSOLUTE LYMPH COUNT 0.6 /CUMM (1.2-3.4); ABSOLUTE MONOCYTE COUNT 0.4 /CUMM (0.10-0.60); BASOPHIL % 0.2 % (0.0-2.0); EOSINOPHIL % 2.1 % (0-5); GRANULOCYTE % 79.2 % (42.2-75.2); HEMATOCRIT 30.2 % (42-52); MEAN CORPUSCULAR HGB 27.9 PG (27.0-31.0); MEAN CORPUSCULAR HGB CONC 33.2 G/DL (33.0-37.0); MEAN CORPUSCULAR VOLUME 84.2 FL (80.0-94.0); MEAN PLATELET VOLUME 7.7 FL (7.4-10.4); PLATELET COUNT 275 /CUMM (130-400); RBC DISTRIBUTION WIDTH 13.5 % (11.5-14.5); RED BLOOD CELL CT 3.59 /CUMM (4.70-6.10); WHITE BLOOD CELL COUNT 5.5 /CUMM (4.8-10.8)
--- NOTE | 2017-08-16 09:33 | PN- Infect Dx ---
Subjective Subjective: Afebrile. He notes discomfort in the right heel. Objective Last 24 Hrs of Vital Signs/I&O Vital Signs Date Time Temp Pulse Resp B/P B/P Pulse O2 O2 Flow FiO2 Mean Ox Delivery Rate 08/16 0600 98.4 76 18 132/84 97 Room Air 08/15 2208 98.1 74 20 130/80 96 Room Air 08/15 1433 98.6 92 20 134/62 97 Intake & Output 08/16 1600 08/16 0800 08/16 0000 Intake Total 400 400 Output Total 200 600 Balance 200 -200 Intake, IV 300 300 Intake, Oral 100 100 Output, Urine 200 600 Patient 300 lb Weight Weight Bed scale Measurement Method Physical Exam Other Physical Findings: He appears comfortable in no acute distress Extremities right foot dressing intact Results Last 24 Hours of Lab Results: Laboratory Tests 08/16 704 Chemistry Sodium (137 - 145 mmol/L) 139 Potassium (3.5 - 5.1 mmol/L) 4.5 Chloride (98 - 107 mmol/L) 102 Carbon Dioxide (22 - 30 mmol/L) 26 Anion Gap (5 - 16) 11 BUN (9 - 20 mg/dL) 18 Creatinine (0.7 - 1.2 mg/dL) 1.0 Estimated GFR (>60 ml/min) > 60 BUN/Creatinine Ratio (7 - 25 %) 18.0 Hematology CBC w Diff NO MAN DIFF REQ WBC (4.8 - 10.8 /CUMM) 5.5 RBC (4.70 - 6.10 /CUMM) 3.59 L Hgb (14.0 - 18.0 G/DL) 10.0 L Hct (42 - 52 %) 30.2 L MCV (80.0 - 94.0 FL) 84.2 MCH (27.0 - 31.0 PG) 27.9 MCHC (33.0 - 37.0 G/DL) 33.2 RDW (11.5 - 14.5 %) 13.5 Plt Count (130 - 400 /CUMM) 275 MPV (7.4 - 10.4 FL) 7.7 Gran % (42.2 - 75.2 %) 79.2 H Lymphocytes % (20.5 - 51.1 %) 11.8 L Monocytes % (1.7 - 9.3 %) 6.7 Eosinophils % (0 - 5 %) 2.1 Basophils % (0.0 - 2.0 %) 0.2 Absolute Granulocytes (1.4 - 6.5 /CUMM) 4.3 Absolute Lymphocytes (1.2 - 3.4 /CUMM) 0.6 L Absolute Monocytes (0.10 - 0.60 /CUMM) 0.4 Absolute Eosinophils (0.0 - 0.7 /CUMM) 0.1 Absolute Basophils (0.0 - 0.2 /CUMM) 0 Last 24 Hours of Pb Results: OR culture August 13 labeled right foot bone positive for Staph aureus sensitive to Oxacillin, beta strep Group G, E coli sensitive to all antibiotics tested and diphtheroids Blood cultures 2 August 13 negative Recent Imaging Studies: MRI of the right ankle August 14 reveals underlying marrow edema with slight loss of signal at the lateral aspect of the heel spur and the calcaneal tuberosity suggesting early osteomyelitis Assessment/Plan ID Impression: Stable, with temperatures and white blood cell count remaining normal, on Unasyn for a polymicrobial infection of the right heel, status post debridement of the soft tissue 2 days ago, with no exposed bone and with the periosteum overlying the calcaneus appearing intact, but with the MRI suggesting early osteomyelitis. Will discuss further with Podiatry but suspect he will require debridement of the right heel and a prolonged course of IV antibiotics. Suggestion: 1. Further debridement of the right heel per Podiatry 2. Vascular surgery evaluation 3. Increase Unasyn to 3 g IV every 6 hours
--- NOTE | 2017-08-16 09:33 | PN- Housestaff ---
See Addendum Lukas Thomas 08/16/17 0922: Subjective Follow-up For: Right heel chronic unhealed ulcer s/p incision and drainage Complaints: pain in the right leg Subjective: Patient seen and examined. Having breakfast. Complains of pain and discomfort in the right heel extending to the calf. Morphine helps relieve the discomfort and the pain. Review of Systems Constitutional: Reports: weakness. EENTM: Reports: no symptoms. Cardiovascular: Reports: no symptoms. Respiratory: Reports: no symptoms. Gastrointestinal: Reports: no symptoms. Genitourinary: Reports: no symptoms. Musculoskeletal: Reports: joint pain, joint swelling. Skin: Reports: no symptoms. Objective Last 24 Hrs of Vital Signs/I&O Vital Signs Date Time Temp Pulse Resp B/P B/P Pulse O2 O2 Flow FiO2 Mean Ox Delivery Rate 08/16 0600 98.4 76 18 132/84 97 Room Air 08/15 2208 98.1 74 20 130/80 96 Room Air 08/15 1433 98.6 92 20 134/62 97 Intake & Output 08/16 1600 08/16 0800 08/16 0000 Intake Total 400 400 Output Total 200 600 Balance 200 -200 Intake, IV 300 300 Intake, Oral 100 100 Output, Urine 200 600 Patient 136.134 kg Weight Weight Bed scale Measurement Method Physical Exam General Appearance: Alert, Oriented X3, Cooperative, Mild Distress Skin: No Rashes Skin Temp/Moisture Exam: Warm/Dry Sepsis Skin Exam (color): Normal for Ethnicity HEENT: Atraumatic, PERRLA, EOMI Neck: Supple, No JVD Lymphatic: Cervical nl Cardiovascular: Regular Rate, Normal S1, Normal S2, No Murmurs Lungs: Clear to Auscultation, Normal Air Movement Abdomen: Normal Bowel Sounds Extremities: 1+ edema in the right ankle,dressing intact. Vascular: non palpable pulses Current Medications: Current Medications Sig/Sherita Start time Last Medication Dose Route Stop Time Status Admin Acetaminophen 650 MG Q6P PRN 08/14 0915 AC PO Amlodipine Besylate 5 MG DAILY 08/14 1000 AC 08/15 PO 0920 Ampicillin Sodium/ 3,000 MG Q8 08/13 2200 AC 08/16 Sulbactam Sodium IV 0559 Sodium Chloride 100 ML Bisacodyl 5 MG DAILY 08/16 1000 AC PO Bisacodyl 5 MG ONE ONE 08/16 0045 CAN PO 08/16 0046 Clopidogrel Bisulfate 75 MG DAILY 08/14 1000 AC 08/15 PO 0919 Heparin Sodium 5,000 UNIT Q8 08/13 1400 AC 08/16 (Porcine) SC 0559 Insulin Aspart 0 TIDAC 08/13 1700 AC 08/15 SC 1209 Morphine Sulfate 2 MG Q6P PRN 08/15 1100 AC 08/15 IV 1909 Polyethylene Glycol 17 GM DAILY 08/16 1000 AC PO Polyethylene Glycol 17 GM ONCE ONE 08/16 0045 CAN PO 08/16 0046 Sodium Chloride 1,000 ML Q13H 08/13 1515 AC 08/16 IV 0805 Last 24 Hrs of Lab/Pb Results Last 24 Hrs of Labs/Mics: Laboratory Tests 08/16/17 0705: Anion Gap 11, Estimated GFR > 60, BUN/Creatinine Ratio 18.0, CBC w Diff NO MAN DIFF REQ, RBC 3.59 L, MCV 84.2, MCH 27.9, MCHC 33.2, RDW 13.5, MPV 7.7, Gran % 79.2 H, Lymphocytes % 11.8 L, Monocytes % 6.7, Eosinophils % 2.1, Basophils % 0.2, Absolute Granulocytes 4.3, Absolute Lymphocytes 0.6 L, Absolute Monocytes 0.4, Absolute Eosinophils 0.1, Absolute Basophils 0 Assessment/Plan Assessment: 57-year-old male with past medical history significant for diabetes, hypertension, chronic diastolic CHF, peripheral vascular disease and as reported by patient status post either stents or balloon in right lower extremity admitted with right foot nonhealing diabetic ulcer status post open incision and debridement with MRI showing large heel spur suggesting mild early osteomyelitis. Assessment and plan: #Right heel chronic and healed ulcer status post incision and debridement: Osteomyelitis * Plan for OR on Thursday for further debridement and placement of wound VAC * Patient may needs to be NPO after midnight on Thursday night for further debridement on Thursday, please touch base with Dr. Ward * MRI results suggesting early mild osteomyelitis currently the patient on IV Unasyn * Wound culture grew staph aureus, beta strep group G, gram-negative rods, pending sensitivity.Will follow final OR cultures * Antibiotic duration and recommendations per ID * Consider vascular surgery evaluation * Get records from [facility] about the vascular interventions * Dr Leoncio Ag( vascular) will see pt in 1 week for ulcer check and CHARO testing. Statin and antiplatelet Rx for life. #NIDDM: * Continue Accu-Chek, and insulin sliding scale * Diabetic diet #JAZMIN/resolved #History of hypertension: * Currently his blood pressure is well controlled on amlodipine 5 mg daily * If his blood pressure became an issue at any point resume his home dose of lisinopril, given that his kidney function back to baseline * We'll check his kidney function tomorrow -FC -Diabetic diet -DVT prophylaxis with subcutaneous heparin Problem List: 1. Diabetes 2. Osteomyelitis Pain Ratin Pain Location: right heel Pain Goal: Pain 4 or less Pain Plan: Morphine Tomorrow's Labs & Rationales: bep, cbc Osteomyelitis Acute Kidney injury Lebron LOWE,[facility] 08/16/17 1235: Attending MD Review Statement Attending Statement Attending MD Statement: examined this patient, discuss w/resident/PA/RUBBER TRIMMER, agreed w/resident/PA/RUBBER TRIMMER, discussed with family, reviewed EMR data (avail), discussed with nursing, discussed with case mgmt, reviewed images, amended to note Attending Assessment/Plan: Patient seen and examined, overall doing well. Did have some pain which gets controlled with morphine. Vital Signs Date Time Temp Pulse Resp B/P B/P Pulse O2 O2 Flow FiO2 Mean Ox Delivery Rate 08/16 0600 98.4 76 18 132/84 97 Room Air 08/15 2208 98.1 74 20 130/80 96 Room Air 08/15 1433 98.6 92 20 134/62 97 on exam; aox3, nad. cv; s1,s2, rrr resp; clear abd; soft, nt, bs+ ext; trace edema. velia wrap on right foot. Laboratory Tests 08/16 0705 Chemistry Sodium (137 - 145 mmol/L) 139 Potassium (3.5 - 5.1 mmol/L) 4.5 Chloride (98 - 107 mmol/L) 102 Carbon Dioxide (22 - 30 mmol/L) 26 Anion Gap (5 - 16) 11 BUN (9 - 20 mg/dL) 18 Creatinine (0.7 - 1.2 mg/dL) 1.0 Estimated GFR (>60 ml/min) > 60 BUN/Creatinine Ratio (7 - 25 %) 18.0 Hematology CBC w Diff NO MAN DIFF REQ WBC (4.8 - 10.8 /CUMM) 5.5 RBC (4.70 - 6.10 /CUMM) 3.59 L Hgb (14.0 - 18.0 G/DL) 10.0 L Hct (42 - 52 %) 30.2 L MCV (80.0 - 94.0 FL) 84.2 MCH (27.0 - 31.0 PG) 27.9 MCHC (33.0 - 37.0 G/DL) 33.2 RDW (11.5 - 14.5 %) 13.5 Plt Count (130 - 400 /CUMM) 275 MPV (7.4 - 10.4 FL) 7.7 Gran % (42.2 - 75.2 %) 79.2 H Lymphocytes % (20.5 - 51.1 %) 11.8 L Monocytes % (1.7 - 9.3 %) 6.7 Eosinophils % (0 - 5 %) 2.1 Basophils % (0.0 - 2.0 %) 0.2 Absolute Granulocytes (1.4 - 6.5 /CUMM) 4.3 Absolute Lymphocytes (1.2 - 3.4 /CUMM) 0.6 L Absolute Monocytes (0.10 - 0.60 /CUMM) 0.4 Absolute Eosinophils (0.0 - 0.7 /CUMM) 0.1 Absolute Basophils (0.0 - 0.2 /CUMM) 0 A/P:57-year-old male with past medical history significant for diabetes, hypertension, chronic diastolic CHF, peripheral vascular disease and as reported by patient status post either stents or balloon in right lower extremity admitted with right foot nonhealing diabetic ulcer, MRI consistent with mild early osteomyelitis. JAZMIN resolved. Patient told about the results of his MRI. Patient will be taken to operating room again next Thursday. Continue IV Unasyn. Creatinine back to normal. I will stop his IV fluids. Continue current pain management. DVT prophylaxis: Heparin subcutaneous. Discussed with patient's at bedside.
--- NOTE | 2017-08-16 12:15 | Cons- Vascular Surgery ---
Alejandra Arnold 08/16/17 1215: General Information and HPI Consulting Request Date of Consult: 08/16/17 Requested By: Reason for Consult: foot infection, pvd Source of Information: patient, old records Exam Limitations: poor historian History of Present Illness: This is a 57-year-old man with a hx of diabetes with peripheral neuropathy, peripheral vascular disease, htn, afib, chf, presents with a chronic right heel ulcer (2 months?), who reports he is 6 weeks s/p bilateral lower extremity angioplasties at [facility] but he is unsure of the surgeon's name. Since then, he has undergone periodic debridements, and was admitted 08/13/17 to [facility] due to increasing pain to his right heel. He was taken to the OR by on for incision and drainage, excisional debridement of the right heel for his open necrotic wound right foot with suspected osteomyelitis. Vascular surgery consult requested for assessment. Allergies/Medications Allergies: Coded Allergies: NO KNOWN ALLERGIES (07/25/13) Home Med List: Cholecalciferol (Vitamin D3) 1,000 UNIT TABLET 1 TAB PO DAILY VITAMIN SUPPORT (Reported) Clopidogrel Bisulfate (Clopidogrel) 75 MG TABLET 1 TAB PO DAILY BLOOD THINNER (Reported) Glimepiride (Amaryl) 4 MG TABLET 1 TAB PO DAILY DIABETES (Reported) Lisinopril (Prinivil) (Unknown Strength) TABLET (Unknown Dose) PO DAILY HTN ( Reported) Sitagliptin Phosphate (Januvia) 100 MG TABLET 1 TAB PO DAILY DIABETES ( Reported) Past History Medical History Blood Transfusion Hx: No Neurological: NONE EENT: NONE Cardiovascular: AFIB, diastolic CHF, hypertension Respiratory: NONE Gastrointestinal: NONE Hepatic: NONE Renal: NONE Musculoskeletal: peripheral neuropathy Psychiatric: NONE Endocrine: diabetes Blood Disorders: NONE Cancer(s): NONE PSYCHOLOGICAL EXAMINER/Reproductive: NONE Surgical History Pertinent Surgical History: status post bilateral lower extremity angioplasties and stents 6 weeks prior to admission Family History Relations & Conditions If Any: MOTHER, ; Cause: Heart disease. FATHER Relation not specified for: FH: diabetes mellitus Psychosocial History Services at Home: None Smoking Status: Never Smoked ETOH Use: occasional use Illicit Drug Use: denies illicit drug use Exam & Diagnostic Data Vital Signs and I&O Vital Signs Date Time Temp Pulse Resp B/P B/P Pulse O2 O2 Flow FiO2 Mean Ox Delivery Rate 08/16 0600 98.4 76 18 132/84 97 Room Air 08/15 2208 98.1 74 20 130/80 96 Room Air 08/15 1433 98.6 92 20 134/62 97 Intake & Output 08/16 1600 08/16 0800 08/16 0000 08/15 1600 08/15 0800 08/15 0000 Intake Total 322 028 6177 750 450 Output Total 550 200 600 400 250 Balance -550 200 -200 1400 350 200 Intake, IV 300 300 600 650 350 Intake, Oral 100 100 800 100 100 Output, Urine 550 200 600 400 250 Patient 300 lb 289 lb Weight Weight Bed scale Measurement Method Physical Exam: General - alert & oriented x 3. comfortable. no acute distress Skin - warm, dry, and smooth. scattered tattoos visible. Lungs - clear bilaterally. no w/r/r. Cardiac - s1s2. reg Abdomen - obese. nontender. Extremities - warm bilaterally. right foot dressing removed to assess pulses. dopplerable signals appreciated, DP and PT bilaterally. packing present in right heel, with defect from excisional debridement. baseline peripheral neuropathy with expected decreased sensation b/l feet. Last 24 Hours of Labs: Laboratory Tests 08/16 0705 Chemistry Sodium (137 - 145 mmol/L) 139 Potassium (3.5 - 5.1 mmol/L) 4.5 Chloride (98 - 107 mmol/L) 102 Carbon Dioxide (22 - 30 mmol/L) 26 Anion Gap (5 - 16) 11 BUN (9 - 20 mg/dL) 18 Creatinine (0.7 - 1.2 mg/dL) 1.0 Estimated GFR (>60 ml/min) > 60 BUN/Creatinine Ratio (7 - 25 %) 18.0 Hematology CBC w Diff NO MAN DIFF REQ WBC (4.8 - 10.8 /CUMM) 5.5 RBC (4.70 - 6.10 /CUMM) 3.59 L Hgb (14.0 - 18.0 G/DL) 10.0 L Hct (42 - 52 %) 30.2 L MCV (80.0 - 94.0 FL) 84.2 MCH (27.0 - 31.0 PG) 27.9 MCHC (33.0 - 37.0 G/DL) 33.2 RDW (11.5 - 14.5 %) 13.5 Plt Count (130 - 400 /CUMM) 275 MPV (7.4 - 10.4 FL) 7.7 Gran % (42.2 - 75.2 %) 79.2 H Lymphocytes % (20.5 - 51.1 %) 11.8 L Monocytes % (1.7 - 9.3 %) 6.7 Eosinophils % (0 - 5 %) 2.1 Basophils % (0.0 - 2.0 %) 0.2 Absolute Granulocytes (1.4 - 6.5 /CUMM) 4.3 Absolute Lymphocytes (1.2 - 3.4 /CUMM) 0.6 L Absolute Monocytes (0.10 - 0.60 /CUMM) 0.4 Absolute Eosinophils (0.0 - 0.7 /CUMM) 0.1 Absolute Basophils (0.0 - 0.2 /CUMM) 0 Imaging Results: EXAMINATION: MR ANKLE WITHOUT CONTRAST, RIGHT CLINICAL INFORMATION: Nonhealing ulcer. COMPARISON: Radiographs 08/13/2017. TECHNIQUE: Multiplanar MR imaging was performed through the right ankle on a high-field scanner without intravenous contrast. FINDINGS: There is a large soft tissue defect involving the lateral aspect of the heel pad which extends to a large heel spur and the origin of the plantar fascia. The fascia appears intact. There is underlying marrow edema with slight loss of T1 marrow signal at the lateral aspect of the heel spur and the calcaneal tuberosity suggesting early osteomyelitis. There is diffuse subcutaneous edema. Diffuse edema of the intrinsic muscles of the foot which is not uncommon in diabetic patients. No focal fluid collection. [id number] degenerative changes at the tibiotalar joint and midfoot. IMPRESSION: Soft tissue ulcer as described extending to the lateral aspect of a large heel spur and the adjacent calcaneal tuberosity where there are marrow changes suggesting early or mild osteomyelitis. DICTATED BY: Simba Villanueva MD DATE/TIME DICTATED:08/15/171008 INJECTION MAINTENANCE TECHNICIAN:LADONNA DATE/TIME TRANSCRIBED:08/15/171008 Other Results: SPEC #: [id number] ELVIS: 08/13/17 STATUS: COMP RECD: 08/13/[address]: Chava Ward DPM SOURCE: EXTREMITIE ENTR: 08/13/[address]: Lebron LOWE,Dania SPDESC: ZAHRA Beckett MD,Kandace ORDERED: XTRMOR COMMENT: PIECE OF TISSUE RECEIVED IN CUP ADDITIONAL INFORMATION: RIGHT FOOT SOFT TISSUE Procedure Result > GRAM STAIN Final 08/14/17-1116 WHITE BLOOD CELLS FEW GRAM POSITIVE COCCI MANY GRAM NEGATIVE RODS MODERATE GRAM POSITIVE RODS FEW > EXTREMITIES OR SPECIMEN Final 08/16/17-928 Heavy growth of: 1. STAPH AUREUS 2. BETA STREP GROUP G Penicillin and Ampicillin are drugs of choice for beta-hemolytic streptococcal infections. Susceptibility testing of penicillins and other beta-lactams are not routinely performed because non-susceptible isolates have only rarely been reported. Note: If patient is allergic to Penicillin, the laboratory can perform Clindamycin testing upon request. Please call within 5 days of final report. Moderate growth of: 3. ESCHERICHIA COLI Preliminary result called to/Readback by DAKOTAH by [email or web address] 08/14/17 1254 Scant growth of: 4. DIPHTHEROIDS Staph shannen E.coli RX AB RX AB ------ -- ------ -- AMPICILLIN S CEFAZOLIN S S AMOX/CLAV AUGM S S AMP/SULB-UNASYN S S CIPROFLOXACIN S GENTAMICIN S TETRACYCLINE I TRIMETH/SULFA S S AZITHROMYCIN S CLINDAMYCIN S OXACILLIN S VANCOMYCIN S 1. STAPH AUREUS RX ABN ------ --- 1. STAPH AUREUS RX AB ------ -- CEFAZOLIN S AMOXICILLIN/CLAVULINIC ACID S AMPICILLIN/SULBACTAM S TETRACYCLINE I TRIMETHOPRIM/SULFAMETHOXAZOLE S AZITHROMYCIN S CLINDAMYCIN S OXACILLIN S VANCOMYCIN S 3. ESCHERICHIA COLI RX AB ------ -- AMPICILLIN S CEFAZOLIN S AMOXICILLIN/CLAVULINIC ACID S AMPICILLIN/SULBACTAM S CIPROFLOXACIN S GENTAMICIN S TRIMETHOPRIM/SULFAMETHOXAZOLE S Assessment/Plan Assessment/Plan This is a 57-year-old man with a hx of dm with peripheral neuropathy, pvd, htn, afib, chf, presents with a chronic right heel ulcer (2 months?), who reports he is 6 weeks s/p bilateral lower extremity angioplasties at [facility] but he is unsure of the surgeon's name. Since then, he has undergone periodic debridements , and was admitted 08/13/17 to [facility] due to increasing pain to his right heel. He was taken to the OR by on 08/13/17 for incision and drainage, excisional debridement of the right heel for his open necrotic wound right foot with suspected osteomyelitis. Vascular surgery consult requested for assessment. currently iv unasyn ID already following the patient reports plans for further debridment on thursday by recommend off loading his right heel plavix ordered recommend obtaining vascular records from [facility], as he underwent surgery there 6 weeks ago reportedly, but he does not know the surgeon's name in light of his recent revascularization, with evidence of flow peripherally, further vascular interventions at this time will likely not improve his outflow will d/w Consult Acknowledgment - Thank you for your consult request. Leoncio Ag MD 08/16/17 2173: Assessment/Plan Consult Acknowledgment - Thank you for your consult request. Attending MD Review Statement Attending Statement Attending MD Statement: examined this patient Attending Assessment/Plan: He has right heel ulcer, and reportedly had revascularization of both legs at [facility] 6 weeks ago. He is being treated for infected ulcer, and is planned for repeat surgical debridement on Thursday. On exam, he has nonpalpable popliteal or pedal pulses, but signals are present over the DP and PT. 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 The importance of offloading and local wound care stressed to patient. Revascularization in such temporal proximity to prior revascularization, especially if the revascularization was deemed successful, is not indicated. Proceed with ulcer debridement. I will see him back in 1 week for ulcer check and CHARO testing. Statin and antiplatelet Rx for life.
[2017-08-16 14:52] VITALS: BP 130/88
[2017-08-16 22:45] VITALS: BP 140/80
[2017-08-17 07:11] VITALS: BP 172/102
[2017-08-17 07:45] VITALS: BP 160/100
[2017-08-17 07:55] LABS: ABSOLUTE BASOPHIL COUNT 0 /CUMM (0.0-0.2); ABSOLUTE EOSINOPHIL COUNT 0.1 /CUMM (0.0-0.7); ABSOLUTE GRANULOCYTE CT 5.2 /CUMM (1.4-6.5); ABSOLUTE LYMPH COUNT 0.7 /CUMM (1.2-3.4); ABSOLUTE MONOCYTE COUNT 0.4 /CUMM (0.10-0.60); BASOPHIL % 0.2 % (0.0-2.0); EOSINOPHIL % 1.7 % (0-5); GRANULOCYTE % 81.5 % (42.2-75.2); HEMATOCRIT 32.3 % (42-52); MEAN CORPUSCULAR HGB 27.7 PG (27.0-31.0); MEAN CORPUSCULAR HGB CONC 33.2 G/DL (33.0-37.0); MEAN CORPUSCULAR VOLUME 83.6 FL (80.0-94.0); MEAN PLATELET VOLUME 7.8 FL (7.4-10.4); PLATELET COUNT 305 /CUMM (130-400); RED BLOOD CELL CT 3.87 /CUMM (4.70-6.10); WHITE BLOOD CELL COUNT 6.4 /CUMM (4.8-10.8)
--- NOTE | 2017-08-17 08:36 | PN- Housestaff ---
See Addendum Subjective Follow-up For: Nonhealing right heel ulcer surrounded by cellulitis HTN DM PVD Peripheral neuropathy Subjective: Afebrile, mildly hypertensive, and saturating well on room air. Patient currently denies pain as long as his leg elevated. He denies any other current active complaints. No acute overnight event was reported. Review of Systems Constitutional: Reports: no symptoms, see HPI. Objective Last 24 Hrs of Vital Signs/I&O Vital Signs Date Time Temp Pulse Resp B/P B/P Pulse O2 O2 Flow FiO2 Mean Ox Delivery Rate 08/17 1033 76 156/90 08/17 0800 Room Air 08/17 0745 160/100 08/17 0711 98.6 64 20 172/102 93 Room Air 08/17 0531 70 20 172/98 08/16 2245 98.1 67 20 140/80 92 Room Air 08/16 1452 98.2 71 20 130/88 94 Intake & Output 08/17 1600 08/17 0800 08/17 0000 Intake Total 600 600 Output Total 350 Balance 250 600 Intake, IV 200 Intake, Oral 400 600 Output, Urine 350 Patient 136.985 kg Weight Weight Bed scale Measurement Method Physical Exam General Appearance: Alert, Oriented X3, Cooperative, No Acute Distress Skin: No Rashes HEENT: Atraumatic, PERRLA, EOMI, Mucous Membr. moist/pink Neck: No JVD Cardiovascular: Regular Rate, Normal S1, Normal S2, No Murmurs Lungs: Clear to Auscultation, Normal Air Movement Abdomen: Soft, No Tenderness Neurological: Normal Speech Extremities: No Clubbing, No Cyanosis, +1 right LE edema and right feet covered with bandage Current Medications: Current Medications Sig/Sherita Start time Last Medication Dose Route Stop Time Status Admin Acetaminophen 650 MG .STK-MED ONE 08/16 2049 DC PO 08/16 2050 Acetaminophen 650 MG Q6P PRN 08/14 0915 AC 08/17 PO 0519 Amlodipine Besylate 2.5 MG ONCE ONE 08/17 1045 DC PO 08/17 1046 Amlodipine Besylate 5 MG DAILY 08/14 1000 AC 08/17 PO 0531 Ampicillin Sodium/ 3,000 MG Q6 08/16 1200 AC 08/17 Sulbactam Sodium IV 0518 Sodium Chloride 100 ML Ampicillin Sodium/ 3,000 MG Q8 08/13 2200 DC 08/16 Sulbactam Sodium IV 0559 Sodium Chloride 100 ML Atorvastatin Calcium 40 MG 1700 08/16 1700 AC 08/16 PO 2030 Bisacodyl 5 MG DAILY 08/16 1000 AC 08/17 PO 1027 Clopidogrel Bisulfate 75 MG DAILY 08/14 1000 AC 08/17 PO 1027 Heparin Sodium 5,000 UNIT Q8 08/13 1400 AC 08/17 (Porcine) SC 0519 Insulin Aspart 0 TIDAC 08/13 1700 AC 08/16 SC 1152 Morphine Sulfate 2 MG Q6P PRN 08/15 1100 AC 08/17 IV 0739 Polyethylene Glycol 17 GM DAILY 08/16 1000 AC 08/17 PO 1026 Sodium Chloride 1,000 ML Q13H 08/13 1515 DC 08/16 IV 0805 Last 24 Hrs of Lab/Pb Results Last 24 Hrs of Labs/Mics: Laboratory Tests 08/17/17 0630: CBC w Diff NO MAN DIFF REQ, RBC 3.87 L, MCV 83.6, MCH 27.7, MCHC 33.2, RDW 14.0 , MPV 7.8, Gran % 81.5 H, Lymphocytes % 11.0 L, Monocytes % 5.6, Eosinophils % 1.7, Basophils % 0.2, Absolute Granulocytes 5.2, Absolute Lymphocytes 0.7 L, Absolute Monocytes 0.4, Absolute Eosinophils 0.1, Absolute Basophils 0 Assessment/Plan Assessment: 57-year-old male presented with nonhealing ulcer, he has diabetes complicated with neuropathy and peripheral vascular disease, status post debridement of the right heel soft tissue on admission with soft tissue biopsy and culture that grew staph aureus, group G strep, and gram negative rods. Currently is in Unasyn that was increased up to 3 mg every 6. MRI showed possible osteomyelitis. Has elevated ESR up to 110. Right leg +1 edema, DVT was ruled out with Doppler ultrasound. Plan #Right ankle ulcer with swelling up to the knee with possible ankle osteomyelitis * Nothing by mouth starting midnight for OR debridement tomorrow * Continue Unasyn 3 mg every 6 * Pending final cxs * Hx of vascular procedures form [facility] can be found in the patient chart * Continue clopidogrel for PVD #NIDDM * Diabetic diet * Fingerstick glucose level * Continue insulin sliding scale #HTN/JAZMIN * Resolved * Renal artery stenosis is possible given worsening creatinine 3 days after starting lisinopril and extensive history of peripheral vascular disease. We will avoid lisinopril and instruct the patient to follow with primary care doctor * Continue amlodipine -FC -Diabetic diet -DVT prophylaxis with subcutaneous heparin Problem List: 1. Osteomyelitis 2. Open wound of right heel Pain Ratin Pain Location: Right ankle Pain Goal: Remain pain free Pain Plan: With the morphine see A&P Tomorrow's Labs & Rationales: No need for lab as all laps are within normal limits
[2017-08-17 10:33] VITALS: BP 156/90
--- NOTE | 2017-08-17 14:02 | PN- Infect Dx ---
Subjective Subjective: Afebrile. He continues to complain of pain in the right heel. Objective Last 24 Hrs of Vital Signs/I&O Vital Signs Date Time Temp Pulse Resp B/P B/P Pulse O2 O2 Flow FiO2 Mean Ox Delivery Rate 08/17 1147 76 156/90 08/17 1033 76 156/90 08/17 0800 Room Air 08/17 0745 160/100 08/17 0711 98.6 64 20 172/102 93 Room Air 08/17 0531 70 20 172/98 08/16 2245 98.1 67 20 140/80 92 Room Air 08/16 1452 98.2 71 20 130/88 94 Intake & Output 08/17 1600 08/17 0800 08/17 0000 Intake Total 600 600 Output Total 350 Balance 250 600 Intake, IV 200 Intake, Oral 400 600 Output, Urine 350 Patient 302 lb Weight Weight Bed scale Measurement Method Physical Exam Other Physical Findings: He appears comfortable in no acute distress Extremities right foot dressing intact Results Last 24 Hours of Lab Results: Laboratory Tests 08/17 06 Hematology CBC w Diff NO MAN DIFF REQ WBC (4.8 - 10.8 /CUMM) 6.4 RBC (4.70 - 6.10 /CUMM) 3.87 L Hgb (14.0 - 18.0 G/DL) 10.7 L Hct (42 - 52 %) 32.3 L MCV (80.0 - 94.0 FL) 83.6 MCH (27.0 - 31.0 PG) 27.7 MCHC (33.0 - 37.0 G/DL) 33.2 RDW (11.5 - 14.5 %) 14.0 Plt Count (130 - 400 /CUMM) 305 MPV (7.4 - 10.4 FL) 7.8 Gran % (42.2 - 75.2 %) 81.5 H Lymphocytes % (20.5 - 51.1 %) 11.0 L Monocytes % (1.7 - 9.3 %) 5.6 Eosinophils % (0 - 5 %) 1.7 Basophils % (0.0 - 2.0 %) 0.2 Absolute Granulocytes (1.4 - 6.5 /CUMM) 5.2 Absolute Lymphocytes (1.2 - 3.4 /CUMM) 0.7 L Absolute Monocytes (0.10 - 0.60 /CUMM) 0.4 Absolute Eosinophils (0.0 - 0.7 /CUMM) 0.1 Absolute Basophils (0.0 - 0.2 /CUMM) 0 Last 24 Hours of Pb Results: Blood cultures August 13 negative Assessment/Plan ID Impression: Stable, with temperatures and white blood cell count remaining normal, on Unasyn for a polymicrobial infection of the right heel, status post debridement of the soft tissue 4 days ago, with no exposed bone and with the periosteum overlying the calcaneus appearing intact, but with the MRI suggesting early osteomyelitis. Have discussed with Podiatry who plans on debridement of the right heel in the a.m. and, based on the MRI, he will require a 4 week course of IV antibiotics. Vascular Surgery evaluation noted, with concern of recurrent stenosis of the right SFA, but there are no plans for revascularization at this time. Suggestion: 1. Await debridement of the right heel in the OR in the a.m. 2. Would pursue placement of a PICC 3. Continue Unasyn
[2017-08-17 15:07] VITALS: BP 140/70
[2017-08-17 23:52] VITALS: BP 132/80
[2017-08-18 06:36] VITALS: BP 160/90
--- NOTE | 2017-08-18 08:35 | PN- Housestaff ---
See Addendum Subjective Follow-up For: Nonhealing right heel ulcer surrounded by cellulitis HTN DM PVD Peripheral neuropathy Subjective: Afebrile, mildly hypertensive, saturating mid 90s on room air. Pain is fairly controlled. He denies any current active complaints except for mild intermittent pain over his right feet. Patient is nothing by mouth and scheduled for debridement later today. Review of Systems Constitutional: Reports: see HPI. Denies: chills, diaphoresis, fever, weakness. Objective Last 24 Hrs of Vital Signs/I&O Vital Signs Date Time Temp Pulse Resp B/P B/P Pulse O2 O2 Flow FiO2 Mean Ox Delivery Rate 08/18 0636 97.7 68 20 160/90 92 Room Air 08/18 0000 95 Room Air 08/17 2352 98.2 78 18 132/80 95 Room Air 08/17 1507 98.2 75 18 140/70 96 08/17 1147 76 156/90 08/17 1033 76 156/90 Intake & Output 08/18 1600 08/18 0800 08/18 0000 Intake Total 260 310 Output Total Balance 260 310 Intake, IV 260 130 Intake, Oral 0 180 Number 0 Bowel Movements Patient 131.145 kg Weight Physical Exam General Appearance: Alert, Oriented X3, Cooperative, No Acute Distress Skin: No Rashes HEENT: Atraumatic, PERRLA, EOMI, Mucous Membr. moist/pink Neck: No JVD Cardiovascular: Regular Rate, Normal S1, Normal S2, No Murmurs Lungs: Clear to Auscultation, Normal Air Movement Abdomen: Soft, No Tenderness, No Hepatospenomegaly Neurological: Normal Speech, Strength at 5/5 X4 Ext Extremities: No Clubbing, No Cyanosis, No Edema Current Medications: Current Medications Sig/Sherita Start time Last Medication Dose Route Stop Time Status Admin Acetaminophen 650 MG Q6P PRN 08/14 0915 AC 08/17 PO 0519 Amlodipine Besylate 7.5 MG DAILY 08/18 1000 AC PO Amlodipine Besylate 2.5 MG ONCE ONE 08/17 1045 DC 08/17 PO 08/17 1046 1147 Amlodipine Besylate 5 MG DAILY 08/14 1000 DC 08/17 PO 0531 Ampicillin Sodium/ 3,000 MG Q6 08/16 1200 AC 08/18 Sulbactam Sodium IV 0629 Sodium Chloride 100 ML Atorvastatin Calcium 40 MG 1700 08/16 1700 AC 08/17 PO 2000 Bisacodyl 5 MG DAILY 08/16 1000 AC 08/17 PO 1027 Clopidogrel Bisulfate 75 MG DAILY 08/14 1000 AC 08/17 PO 1027 Heparin Sodium 5,000 UNIT Q8 08/13 1400 AC 08/18 (Porcine) SC 0634 Insulin Aspart 0 TIDAC 08/13 1700 DC 08/17 SC 1826 Insulin Human Regular 0 Q6 08/18 0014 AC 08/18 SC 0638 Morphine Sulfate 2 MG Q6P PRN 08/15 1100 AC 08/18 IV 0400 Polyethylene Glycol 17 GM DAILY 08/16 1000 AC 08/17 PO 1026 Assessment/Plan Assessment: 57-year-old male Hx of NIDDM, neuropathy, and PAD who presented with nonhealing ulcer right heel ulcer s/p debridement on the day of admission with soft tissue biopsy and culture that grew pansensitive staph aureus, group G strep, and gram negative rods. Currently is on IV Unasyn. MRI showed possible osteomyelitis. Has elevated ESR up to 110. Right leg +1 edema, DVT was ruled out with Doppler ultrasound. The patient is currently nothing by mouth for debridement later today. His pain is managed with 2 mg IV morphine every 6 when necessary. This morning'S lab is within normal limits. ID, vascular, and podiatry consults are involved in the case Plan #Right ankle ulcer with swelling up to the knee with possible ankle osteomyelitis * Nothing by mouth for debridement later today * Continue Unasyn 3 mg every 6 * We will pursue PICC line placement for long-term antibiotic(consent in chart) * Hx of vascular procedures form [facility] can be found in the patient chart * Continue clopidogrel for PVD #NIDDM * Diabetic diet * Fingerstick glucose level * Continue insulin sliding scale #HTN/JAZMIN * Resolved * Renal artery stenosis is possible given worsening creatinine 3 days after starting lisinopril and extensive history of peripheral vascular disease. We will avoid lisinopril and instruct the patient to follow with primary care doctor * We'll increase amlodipine 7.5 mg daily up from 5 mg daily -FC -Nothing by mouth for now, diabetic diet post procedure -DVT prophylaxis with subcutaneous heparin Problem List: 1. Osteomyelitis 2. Peripheral vascular disease 3. Open wound of right heel Pain Ratin Pain Location: NA Pain Goal: Remain pain free Pain Plan: See A&P Tomorrow's Labs & Rationales: See A&P
--- NOTE | 2017-08-18 11:10 | RADIOLOGY REPORT ---
EXAMINATION: XR PORTABLE CHEST CLINICAL INFORMATION: Status post-post PICC placement. COMPARISON: Chest regressed dated 08/07/2013. TECHNIQUE: Portable frontal view of the chest was obtained. FINDINGS: No significant abnormality is noted involving the heart, lungs, mediastinum, bony thorax or soft tissues. The PICC catheter tip is situated at the cavoatrial junction. There is stable mild elevation of the right hemidiaphragm. IMPRESSION: PICC catheter tip as above. There is no active cardiopulmonary disease. No pneumothorax is seen.
--- NOTE | 2017-08-18 12:08 | Discharge Summary ---
Visit Information Visit Dates Admission Date: 08/13/17 Discharge Date: 08/20/17 Hospital Course Course Attending Physician: Dania Diana MD Primary Care Physician: Sujit LOWE,[facility] Course: 57-year-old male with PMH NIDDM, HTN, PVD s/p vascular angioplasty, who presented with 2 months of progressive right heel ulcer that recently became painful with foul-smelling discharge. On exam he had right ankle ulcer with erythematous, swelling and tenderness that most likely represented cellulitis. Right leg +1 edema, DVT was ruled out with Doppler ultrasound. The patient was started on Unasyn and was taken to the OR for debridement. Soft tissue biopsy and culture grew staph aureus, Escherichia coli, beta strep group G and diphtheroids. ESR was 110 and MRI had high suspicion for osteomyelitis. Patient underwent second excisional debridement along with wound VAC placement on 2017 with podiatry. Bone biopsy was also taken, results of which are pending. Patient is currently toe-touch with walker and assist as per podiatry. PICC line was placed and the patient was discharged ceftriaxone 2 g every 24 hours for 4 weeks until September 15, 2017. Patient will have weekly ESR's while on antibiotic therapy. Few days days before admission the patient was started on lisinopril, on admission his Cr was 1.7 with was elevated from his baseline before starting lisinopril. Renal artery stenosis was a possible part given almost 50% worsening of renal function in few days after starting lisinopril and history of peripheral vascular disease. We stopped lisinopril and started amlodipine. The patient was instructed to follow with PCP to restart ACEs/ARBs and checking renal function within one week of starting the medications. Patient also has history of peripheral vascular disease, for which he had vascular procedures form [facility]. Records were obtained and we continue clopidogrel for peripheral vascular disease. Allergies: Coded Allergies: NO KNOWN ALLERGIES (07/25/13) Disposition Summary Disposition Principal Diagnosis: osteomyelitis Additional Diagnosis: PAD HTN Discharge Disposition: home health services Discharge Instructions General Discharge Information Code Status: Full Code Patient's Diet: diabetic diet Patient's Activity: As tolerated As per podiatry patient should avoid weightbearing on his heel. Patient was told to do toe-touch with walker Follow-Up Instructions/Appts: Please recieve IV ceftriaxone antibiotic every 24 hours till September 15 for your heal infection Repeat ESR every week after discharge, while on antibiotics Follow-up with primary care doctor after discharge about restarting LULA-I Medications at Discharge Discharge Medications: Stop taking the following medications: Lisinopril (Lisinopril) 5 MG TABLET ORAL DAILY Continue taking these medications: Sitagliptin Phosphate (Januvia) 100 MG TABLET 1 Tablet ORAL DAILY Comments: Last Taken:NOT GIVEN IN HOSPITAL Time: Glimepiride (Amaryl) 4 MG TABLET 1 Tablet ORAL DAILY Comments: Last Taken:NOT GIVEN IN HOSPITAL Time: Cholecalciferol (Vitamin D3) 1,000 UNIT TABLET 1 Tablet ORAL DAILY Comments: Last Taken:NOT GIVEN IN HOSPITAL Time: Clopidogrel Bisulfate (Clopidogrel) 75 MG TABLET 1 Tablet ORAL DAILY Comments: Last Taken:08/20/17 Time:10 AM Start taking the following new medications: Ceftriaxone Sodium (Ceftriaxone) 2 GRAM VIAL 2,000 Milligram INTRAVEN EVERY 24 HOURS Qty = 28 No Refills Comments: Patient will recieve 2 GRAM CEFTRIAXONE EVERY 24 HOURS UNTIL August LAST DOSE: 08/20/17 AT 5:30 PM Amlodipine (Norvasc) 2.5 MG TABLET 7.5 Milligram ORAL DAILY Qty = 60 No Refills Comments: Last Taken:08/20/17 Time:10 AM Tramadol HCl (Tramadol HCl) 50 MG TABLET 50 Milligram ORAL EVERY 8 HOURS NEEDED as needed for PAIN 7-10 Qty = 15 No Refills Instructions: . Comments: Last Taken:08/20/17 Time:6 PM Copies To: Kandace Beckett MD
[2017-08-18 15:45] VITALS: BP 410/88
--- NOTE | 2017-08-18 16:24 | Operative Report ---
Operative/Inv Procedure Report Surgery Date: 08/18/17 Name of Procedure: 1 open incision and drainage deep to the deep fascia with exposure of the flexor tendon and tendon sheath multiple sites right foot 2 bone biopsy right foot 3 intraoperative restriction of negative pressure wound therapy 4 intraoperative administration of ankle block anesthesia 5 excisional debridement Pre-Operative Diagnosis: 1 open necrotic wound right foot 2 osteomyelitis right foot 3 peripheral arterial disease Post-Operative Diagnosis: Same Estimated Blood Loss: less than 50ml Surgeon/Lace Finisher: SALLIE EDWARDS DPM Anesthesia: moderate sedation, block Operative/Procedure Note Note: After obtaining informed consent the patient was brought to the operating room and placed on the operating table in the supine position. The patient isn't securely fastened to epithelialize safety belt. After administration of IV sedation, 10 mL of 0.5% Marcaine plain was infiltrated about the patient's right ankle. The right foot and ankle then scrubbed prepped and draped in usual aseptic manner. Digitorectal directed to the plantar aspect the right heel, where an 8 cm x 6 cm Tello grade 3 ulceration was identified. As necrosis identified centrally and at the periphery of the lesion. There is undermining identified medially and at the lateral margin. For now, exposed bone was identified centrally. A 15 blade visualized sharply revised skin margins. The dissection was then again carried down to the deep fascia with exposure of the plantar fascia both proximally and distally. All necrotic, nonviable infected tissue sharply evacuated from the wound bed. Bone specimen was harvested for pathologic inspection. Nipple was then irrigated with 3 L of normal sterile saline infusion 50,000 units of bacitracin. Following this, the foot was redraped and surgeon's top was changed clean gloves. Any bleeding vessels identified were cauterized a lace encountered. Next, negative pressure wound therapy assessment of the wound bed followed by the application of Kerlix and Coban. Patient noted tolerate both procedure and anesthesia well patient was transported from the operating room to recovery with vital signs stable.
[2017-08-18 19:24] VITALS: BP 150/74
[2017-08-18 22:57] VITALS: BP 142/82
[2017-08-19 06:42] VITALS: BP 132/74
--- NOTE | 2017-08-19 07:59 | PN- Housestaff ---
Chidi Beaulieu MD,[facility] 08/19/17 0758: Subjective Follow-up For: Right heel polymicrobial infection Status post debridement 2 Peripheral vascular disease Complaints: PAIN IN THE RIGHT HEEL Subjective: Patient was lying in bed with mild discomfort. He was complaining of right heel pain. He underwent second excisional debridement with wound VAC and had bone biopsy of the right foot. PICC line was also placed. Patient remained afebrile overnight. No acute complaints of shortness of breath or chest pain. Review of Systems Constitutional: Denies: chills, fever. Cardiovascular: Denies: chest pain, palpitations. Respiratory: Denies: hemoptysis. Gastrointestinal: Denies: abdominal pain, nausea. Genitourinary: Denies: dysuria, nocturia. Musculoskeletal: Denies: joint pain. Objective Last 24 Hrs of Vital Signs/I&O Vital Signs Date Time Temp Pulse Resp B/P B/P Pulse O2 O2 Flow FiO2 Mean Ox Delivery Rate 08/19 0818 132/74 08/19 0642 98.0 75 20 132/74 94 Room Air 08/18 2257 98.3 69 20 142/82 94 Room Air 08/18 1924 150/74 08/18 1545 98.1 67 20 410/88 95 Intake & Output 08/19 1600 08/19 0800 08/19 0000 Intake Total 700 680 Output Total 400 500 Balance 300 180 Intake, IV 200 200 Intake, Oral 500 480 Number 2 Bowel Movements Output, Urine 400 500 Patient 289 lb Weight Weight Bed scale Measurement Method Physical Exam General Appearance: Alert, Oriented X3, Mild Distress Skin: No Rashes HEENT: Atraumatic Neck: Supple, No JVD Cardiovascular: Regular Rate, Normal S1, Normal S2 Lungs: Clear to Auscultation, Normal Air Movement Abdomen: Normal Bowel Sounds, Soft, No Tenderness Neurological: Normal Speech, Normal Tone, Sensation Intact Extremities: Right heel s/p excisional debridement x 2 Current Medications: Current Medications Sig/Sherita Start time Last Medication Dose Route Stop Time Status Admin Acetaminophen 650 MG Q6P PRN 08/14 0915 AC 08/19 PO 0818 Amlodipine Besylate 7.5 MG DAILY 08/18 1000 AC 08/19 PO 0818 Ampicillin Sodium/ 3,000 MG Q6 08/16 1200 AC 08/19 Sulbactam Sodium IV 0616 Sodium Chloride 100 ML Atorvastatin Calcium 40 MG 1700 08/16 1700 AC 08/18 PO 1844 Bisacodyl 5 MG DAILY 08/16 1000 AC 08/19 PO 0818 Clopidogrel Bisulfate 75 MG DAILY 08/14 1000 AC 08/19 PO 0818 Fentanyl Citrate 100 MCG .STK-MED ONE 08/18 1520 DC IM 08/18 1521 Heparin Sodium 5,000 UNIT Q8 08/13 1400 AC 08/19 (Porcine) SC 0616 Insulin Aspart 0 TIDAC 08/19 0800 AC SC Insulin Human Regular 0 Q6 08/18 0014 DC 08/18 SC 0638 Meperidine HCl 50 MG .STK-MED ONE 08/18 1641 DC IM 08/18 1642 Midazolam HCl 2 MG .STK-MED ONE 08/18 1520 DC IM 08/18 1521 Morphine Sulfate 4 MG .STK-MED ONE 08/18 1641 DC IM 08/18 1642 Morphine Sulfate 2 MG Q6P PRN 08/15 1100 AC 08/19 IV 0619 Polyethylene Glycol 17 GM DAILY 08/16 1000 AC 08/19 PO 0822 Tramadol HCl 50 MG Q6 PRN 08/19 0930 AC 08/19 PO 0933 Lines/Diet/Fluids Fluids/Infusions: none Lines: peripheral lines, PICC LINE Restraints: none Assessment/Plan Assessment: 57-year-old male Hx of NIDDM, neuropathy, and PAD who presented with nonhealing ulcer right heel ulcer s/p debridement on the day of admission with soft tissue biopsy and culture that grew pansensitive staph aureus, group G strep, and gram negative rods. Currently is on IV Unasyn. MRI showed possible osteomyelitis. Has elevated ESR up to 110. Right leg +1 edema, DVT was ruled out with Doppler ultrasound. The patient is currently nothing by mouth for debridement later today. His pain is managed with 2 mg IV morphine every 6 when necessary. This morning'S lab is within normal limits. ID, vascular, and podiatry consults are involved in the case Right heel polymicrobial infection status post excisional debridement and bone biopsy Patient underwent second excisional debridement along with wound VAC placement yesterday on 08/18/2017 with podiatry. Bone biopsy was also taken. Patient is currently toe-touch with walker and assist as per podiatry. He remained afebrile overnight. Patient was complaining of increased pain after procedure. We added tramadol as needed this morning to his existing pain medications. Patient is currently on Unasyn 3 g every 6 hours. PICC line was placed yesterday. Patient will require 4 weeks of IV antibiotics as per ID. Patient wants to go home, will get physical therapy on board and discussed with director of casework services about the discharge planning. History of peripheral vascular disease Hx of vascular procedures form [facility] can be found in the patient chart Continue clopidogrel for PVD Smz-[id number]-mlysarkgy diabetes mellitus Currently on insulin sliding scale Diabetic diet Fingersticks in acceptable range HTN/JAZMIN Resolved Possibility of renal artery stenosis was crossed given worsening creatinine 3 days after starting lisinopril and extensive history of peripheral vascular disease. We will avoid lisinopril and instruct the patient to follow with primary care doctor. We increased amlodipine 7.5 mg daily up from 5 mg daily Diet Patient is currently on diabetic diet DVT prophylaxis -DVT prophylaxis with subcutaneous heparin CODE STATUS Patient is currently full code Problem List: 1. Open wound of right heel 2. Diabetes 3. Hypertension Pain Ratin Pain Location: Right heel Pain Goal: Pain 4 or less Pain Plan: We added tramadol for pain management Tomorrow's Labs & Rationales: None Lebron LOWE,[facility] 08/19/17 1058: Attending MD Review Statement Attending Statement Attending MD Statement: examined this patient, discuss w/resident/PA/WORKERS' COMPENSATION MAGISTRATE, agreed w/resident/PA/WORKERS' COMPENSATION MAGISTRATE, discussed with family, reviewed EMR data (avail), discussed with nursing, discussed with case mgmt, reviewed images, amended to note Attending Assessment/Plan: Patient seen and examined, overall doing well. Patient is very worried about going back to work because he said that he needs to go back to work as soon as possible. Vital Signs Date Time Temp Pulse Resp B/P B/P Pulse O2 O2 Flow FiO2 Mean Ox Delivery Rate 08/19 0818 132/74 08/19 0642 98.0 75 20 132/74 94 Room Air 08/18 2257 98.3 69 20 142/82 94 Room Air 08/18 1924 150/74 08/18 1545 98.1 67 20 410/88 95 on exam; aox3, nad. cv; s1,s2, rrr resp; clear abd; soft, nt, bs+ ext; no edema no labs today. A/P; 57-year-old male with past medical history significant for diabetes, hypertension, chronic diastolic CHF, peripheral vascular disease and as reported by patient status post either stents or balloon in right lower extremity admitted with right foot nonhealing diabetic ulcer, MRI consistent with mild early osteomyelitis. Patient underwent further debridement yesterday and now has a wound VAC. He has a PICC line and getting Unasyn. When it recurred about his outpatient antibiotic regimen. He needs total of 4 weeks per infectious disease. Once outpatient antibiotic regimen is figured out, patient can likely be discharged home. He does not want to go to rehabilitation. His activity will be toe- touch. Patient also will require a wound VAC for home. He will need home visiting nurses services and home PT. We'll try tramadol for pain management. Will continue the rest of his home medications.
--- NOTE | 2017-08-19 11:19 | PN- Infect Dx ---
Subjective Subjective: Afebrile. He feels improved with pain relief with Ultram. Objective Last 24 Hrs of Vital Signs/I&O Vital Signs Date Time Temp Pulse Resp B/P B/P Pulse O2 O2 Flow FiO2 Mean Ox Delivery Rate 08/19 0818 132/74 08/19 0642 98.0 75 20 132/74 94 Room Air 08/18 2257 98.3 69 20 142/82 94 Room Air 08/18 1924 150/74 08/18 1545 98.1 67 20 410/88 95 Intake & Output 08/19 1600 08/19 0800 08/19 0000 Intake Total 700 680 Output Total 400 500 Balance 300 180 Intake, IV 200 200 Intake, Oral 500 480 Number 2 Bowel Movements Output, Urine 400 500 Patient 289 lb Weight Weight Bed scale Measurement Method Physical Exam Other Physical Findings: He appears comfortable in no acute distress Extremities right foot dressing intact, with wound VAC in place; PICC in place in the right upper extremity Results Last 24 Hours of Lab Results: No labs from today Last 24 Hours of Pb Results: No recent cultures Assessment/Plan ID Impression: Stable, with temperatures and white blood cell count remaining normal, on Unasyn for a polymicrobial infection of the right heel, status post further debridement of the right heel soft tissue and, apparently, the bone yesterday. Based on his OR cultures his antibiotics can be adjusted, with a change from Unasyn to Ceftriaxone, for more convenient dosing at home. Vascular Surgery evaluation noted, with concern of recurrent stenosis of the right SFA, but there are no plans for revascularization at this time. Suggestion: 1. Repeat ESR and follow weekly while on antibiotics 2. Vascular surgery follow-up as an outpatient 3. Discontinue Unasyn 4. Begin Ceftriaxone 2 g IV every 24 hours to complete a 4 week course of treatment from his recent debridement (until September 15)
[2017-08-19 14:28] VITALS: BP 138/80
[2017-08-19] MEDS ORDERED: LISINOPRIL5 M1 PO (14:44)
[2017-08-19] MEDS ORDERED: NORVASC2.5 M1 PO (14:45)
[2017-08-19] MEDS ORDERED: CEFTRIAXONE2 G2 IV ×3 (14:50→14:57)
--- NOTE | 2017-08-19 14:57 | Patient Discharge Instructions ---
Discharge Instructions General Discharge Information You were seen/treated for: Right heel polymicrobial infection status post excisional debridement and bone biopsy X 2 Special Instructions: Please recieve IV ceftriaxone antibiotic every 24 hours till September 15 for your heal infection Repeat ESR every week after discharge, while on antibiotics Follow-up with primary care doctor after discharge and discuss restrating LULA-I with monitoring of renal function Follow-up with vascular surgery after discharge Follow-up with podiatry after discharge Diet Continue normal diet: Yes Recommended Diet: Diabetic Activity Full Activity/No Limits: No Additional ACTIVITY Info: As tolerated, weightbearing toe-touch with walker Acute Coronary Syndrome Inclusion Criteria At DC or during hospital stay patient has or had the following: ACS DIAGNOSIS No Discharge Core Measures Meds if any: Prescribed or Continued at Discharge Meds if any: NOT Prescribed or Continued at Discharge Congestive Heart Failure Inclusion Criteria At DC or during hospital stay patient has or had the following: CHF DIAGNOSIS No Discharge Core Measures Meds if any: Prescribed or Continued at Discharge Meds if any: NOT Prescribed or Continued at Discharge Cerebrovascular accident Inclusion Criteria At DC or during hospital stay patient has or had the following: CVA/TIA Diagnosis No Discharge Core Measures Meds if any: Prescribed or Continued at Discharge Meds if any: NOT Prescribed or Continued at Discharge Venous thromboembolism Inclusion Criteria VTE Diagnosis No VTE Type NONE VTE Confirmed by (Test) NONE Discharge Core Measures - Per Current guidelines, there needs to be overlap - treatment for the first 5 days of Warfarin therapy. - If discharged on Warfarin prior to 5 days of - overlap therapy, the patient will need to be - assessed for post discharge needs including - *Post discharge parental anticoagulation - *Warfarin and/or parental anticoagulation education - *Follow up date to check INR post discharge At least 5 days overlap therapy as Inpatient No Meds if any: Prescribed or Continued at Discharge Note: Overlap Therapy is Warfarin and Anticoagulant Meds if any: NOT Prescribed or Continued at Discharge
[2017-08-19 23:17] VITALS: BP 132/80
[2017-08-20 06:57] VITALS: BP 146/82
--- NOTE | 2017-08-20 07:28 | PN- Housestaff ---
Chidi Beaulieu MD,Aaron 08/20/17 0728: Subjective Follow-up For: Right heel polymicrobial infection Status post debridement 2 Peripheral vascular disease Complaints: no complaints Subjective: Patient was lying in bed comfortably. He did not have significant right heel pain. He underwent second excisional debridement with wound VAC and had bone biopsy of the right foot yesterday. Patient remained afebrile overnight. No acute complaints of shortness of breath or chest pain. Patient did have one episode of diarrhea yesterday night. Review of Systems Constitutional: Denies: chills, fever. EENTM: Denies: visual changes. Cardiovascular: Denies: chest pain, palpitations. Respiratory: Denies: cough, short of breath. Gastrointestinal: Reports: diarrhea. Denies: abdominal pain, nausea, vomiting. Objective Last 24 Hrs of Vital Signs/I&O Vital Signs Date Time Temp Pulse Resp B/P B/P Pulse O2 O2 Flow FiO2 Mean Ox Delivery Rate 08/20 0657 97.4 82 18 146/82 96 Room Air 08/19 2317 98.1 73 20 132/80 93 Room Air 08/19 1428 97.6 69 20 138/80 92 Intake & Output 08/20 1600 08/20 0800 08/20 0000 Intake Total 500 Output Total 400 700 Balance -400 -200 Intake, IV 20 Intake, Oral 480 Output, Urine 400 700 Patient 297 lb Weight Weight Bed scale Measurement Method Physical Exam General Appearance: Alert, Oriented X3, Cooperative, No Acute Distress Skin: multiple tattoos HEENT: Atraumatic, PERRLA Neck: No JVD Cardiovascular: Regular Rate, Normal S1, Normal S2 Lungs: Clear to Auscultation, Normal Air Movement Abdomen: Normal Bowel Sounds, Soft, No Tenderness Neurological: Normal Speech, Normal Tone, Sensation Intact Extremities: Right heel s/p excisional debridement x 2, wound vac attached 50ml blood Current Medications: Current Medications Sig/Sherita Start time Last Medication Dose Route Stop Time Status Admin Acetaminophen 650 MG Q6P PRN 08/14 0915 AC 08/19 PO 0818 Amlodipine Besylate 7.5 MG DAILY 08/18 1000 AC 08/19 PO 0818 Ampicillin Sodium/ 3,000 MG Q6 08/16 1200 DC 08/19 Sulbactam Sodium IV 1230 Sodium Chloride 100 ML Atorvastatin Calcium 40 MG 1700 08/16 1700 AC 08/19 PO 1720 Bisacodyl 5 MG DAILY 08/16 1000 AC 08/19 PO 0818 Ceftriaxone Sodium 2,000 MG Q24H 08/19 1700 AC 08/19 IV 1720 Ceftriaxone Sodium 2,000 MG Q24 08/19 1400 CAN IV Clopidogrel Bisulfate 75 MG DAILY 08/14 1000 AC 08/19 PO 0818 Heparin Sodium 5,000 UNIT Q8 08/13 1400 AC 08/20 (Porcine) SC 06 Insulin Aspart 0 TIDAC 08/19 0800 AC 08/19 SC 1230 Morphine Sulfate 2 MG Q6P PRN 08/15 1100 DC 08/19 IV 0619 Patient Medication 1 ED ONE ONE 08/19 1100 DC 08/19 Teaching ED 08/19 1101 1230 Polyethylene Glycol 17 GM DAILY 08/16 1000 AC 08/19 PO 0822 Tramadol HCl 50 MG Q6 PRN 08/19 0930 AC 08/20 PO 0210 Last 24 Hrs of Lab/Pb Results Last 24 Hrs of Labs/Mics: Laboratory Tests 08/20/17 0630: CBC w Diff Pending, WBC Pending, RBC Pending, Hgb Pending, Hct Pending, MCV Pending, MCH Pending, MCHC Pending, RDW Pending, Plt Count Pending, MPV Pending, ESR Westergren Pending Lines/Diet/Fluids Lines: PICC line Restraints: none Assessment/Plan Assessment: 57-year-old male Hx of NIDDM, neuropathy, and PAD who presented with nonhealing ulcer right heel ulcer s/p debridement on the day of admission with soft tissue biopsy and culture that grew pansensitive staph aureus, group G strep, and gram negative rods. Currently is on IV Unasyn. MRI showed possible osteomyelitis. Has elevated ESR up to 110. Right leg +1 edema, DVT was ruled out with Doppler ultrasound. The patient is currently nothing by mouth for debridement later today. His pain is managed with 2 mg IV morphine every 6 when necessary. This morning'S lab is within normal limits. ID, vascular, and podiatry consults are involved in the case Right heel polymicrobial infection status post excisional debridement and bone biopsy Patient underwent second excisional debridement along with wound VAC placement on 08/18/2017 with podiatry. Bone biopsy was also taken, results of which are pending. Patient is currently toe-touch with walker and assist as per podiatry. He remained afebrile overnight. Patient was complaining of increased pain after procedure. We added tramadol as needed and his pain has been under control after that. Patient was on Unasyn which was switched to ceftriaxone 2 g every 24 hours as per ID recommendations. PICC line was placed. Patient will require 4 weeks of IV antibiotics until September 15, 2017 as per ID. Patient wants to go home, will got physical therapy on board and discussed with machine adjuster leader case trim about the discharge planning. History of peripheral vascular disease Hx of vascular procedures form [facility] can be found in the patient chart Continue clopidogrel for PVD Gep-lutbmop-txtobzcwv diabetes mellitus Currently on insulin sliding scale Diabetic diet Fingersticks in acceptable range HTN/JAZMIN Resolved Possibility of renal artery stenosis was crossed given worsening creatinine 3 days after starting lisinopril and extensive history of peripheral vascular disease. We will avoid lisinopril and instruct the patient to follow with primary care doctor. We increased amlodipine 7.5 mg daily up from 5 mg daily Diet Patient is currently on diabetic diet DVT prophylaxis DVT prophylaxis with subcutaneous heparin CODE STATUS Patient is currently full code Problem List: 1. Osteomyelitis 2. Peripheral vascular disease 3. Acute kidney injury Pain Ratin Pain Location: Right heel Pain Goal: Pain 4 or less Pain Plan: continue current pain medications Tomorrow's Labs & Rationales: Not needed Diann Diana MDesha 08/20/17 1118: Attending MD Review Statement Attending Statement Attending MD Statement: examined this patient, discuss w/resident/PA/DIGITAL LEARNING PLATFORMS MANAGER, agreed w/resident/PA/DIGITAL LEARNING PLATFORMS MANAGER, discussed with family, reviewed EMR data (avail), discussed with nursing, discussed with case mgmt, reviewed images, amended to note Attending Assessment/Plan: Patient seen and examined, overall doing well. Medics were switched to ceftriaxone yesterday per infectious disease. Patient is awaiting wound VAC. Vital Signs Date Time Temp Pulse Resp B/P B/P Pulse O2 O2 Flow FiO2 Mean Ox Delivery Rate 08/20 0921 68 140/90 08/20 0657 97.4 82 18 146/82 96 Room Air 08/19 2317 98.1 73 20 132/80 93 Room Air 08/19 1428 97.6 69 20 138/80 92 on exam; aox3, nad. cv; s1,s2, rrr resp; clear abd; soft, nt, bs+ ext; no edema, right foot wrapped in LULA wrap and has a wound vac on. Laboratory Tests 08/20 0630 Hematology CBC w Diff NO MAN DIFF REQ WBC (4.8 - 10.8 /CUMM) 6.9 RBC (4.70 - 6.10 /CUMM) 3.92 L Hgb (14.0 - 18.0 G/DL) 10.8 L Hct (42 - 52 %) 33.1 L MCV (80.0 - 94.0 FL) 84.4 MCH (27.0 - 31.0 PG) 27.5 MCHC (33.0 - 37.0 G/DL) 32.6 L RDW (11.5 - 14.5 %) 14.1 Plt Count (130 - 400 /CUMM) 309 MPV (7.4 - 10.4 FL) 7.5 Gran % (42.2 - 75.2 %) 78.0 H Lymphocytes % (20.5 - 51.1 %) 14.6 L Monocytes % (1.7 - 9.3 %) 6.2 Eosinophils % (0 - 5 %) 1.0 Basophils % (0.0 - 2.0 %) 0.2 Absolute Granulocytes (1.4 - 6.5 /CUMM) 5.4 Absolute Lymphocytes (1.2 - 3.4 /CUMM) 1.0 L Absolute Monocytes (0.10 - 0.60 /CUMM) 0.4 Absolute Eosinophils (0.0 - 0.7 /CUMM) 0.1 Absolute Basophils (0.0 - 0.2 /CUMM) 0 ESR Westergren (0 - 10 MM) 96 H A/P: 57-year-old male with past medical history significant for diabetes, hypertension, chronic diastolic CHF, peripheral vascular disease and as reported by patient status post either stents or balloon in right lower extremity admitted with right foot nonhealing diabetic ulcer, MRI consistent with mild early osteomyelitis. Patient did complain of some diarrhea this morning. If he has continuous diarrhea but with sepsis for C. difficile. And hepatic have been switched to ceftriaxone. Patient awaiting wound VAC which she will take home with. Otherwise we'll continue the rest of his medications. His antibiotics have been arranged for home. Once wound VAC arrives the patient can likely be discharged home today.
[2017-08-20] MEDS ORDERED: TRAMADOL HCL50 M1 PO ×6 (08:30→19:19)
[2017-08-20 08:47] LABS: ABSOLUTE BASOPHIL COUNT 0 /CUMM (0.0-0.2); ABSOLUTE EOSINOPHIL COUNT 0.1 /CUMM (0.0-0.7); ABSOLUTE GRANULOCYTE CT 5.4 /CUMM (1.4-6.5); ABSOLUTE MONOCYTE COUNT 0.4 /CUMM (0.10-0.60); BASOPHIL % 0.2 % (0.0-2.0); HEMATOCRIT 33.1 % (42-52); MEAN CORPUSCULAR HGB 27.5 PG (27.0-31.0); MEAN CORPUSCULAR HGB CONC 32.6 G/DL (33.0-37.0); MEAN CORPUSCULAR VOLUME 84.4 FL (80.0-94.0); MEAN PLATELET VOLUME 7.5 FL (7.4-10.4); PLATELET COUNT 309 /CUMM (130-400); RBC DISTRIBUTION WIDTH 14.1 % (11.5-14.5); RED BLOOD CELL CT 3.92 /CUMM (4.70-6.10); WHITE BLOOD CELL COUNT 6.9 /CUMM (4.8-10.8)
[2017-08-20 13:50] VITALS: BP 140/70
[2017-08-20] MEDS ORDERED: NORVASC2.5 M1 PO ×2 (17:01→18:20)
== END 2017-08-20 20:12 | disposition home health service (06) | DRG 623 ==
LOC: ERH 08:29 → ERHI 12:50 → 2NA 12:50 → ENRESERV 13:15 → ENTRNSPT 13:35 → EDTRNSPTSTS 13:36 → EDTRNSPT 13:36 → 2NA 13:42 → CMPTRNSPT 14:02 → ENTRNSPT 18:48 → EDTRNSPTSTS 18:50 → CMPTRNSPT 19:04 → ENTRNSPT 08-18 17:10 → EDTRNSPT 08-18 17:17 → EDTRNSPTSTS 08-18 17:17 → CMPTRNSPT 08-18 17:43 → ENTRNSPT 08-20 19:42 → 2NA 08-20 20:12 → CMPTRNSPT 08-20 20:21
PROVIDERS: Emergency Medicine; Student in an Organized Health Care Education/Training Program
DX: E11.69 Type 2 diabetes mellitus with other specified complication (principal); M86.8X7 Other osteomyelitis, ankle and foot; N17.9 Acute kidney failure, unspecified; E11.42 Type 2 diabetes mellitus with diabetic polyneuropathy; E11.621 Type 2 diabetes mellitus with foot ulcer; I50.32 Chronic diastolic (congestive) heart failure; I11.0 Hypertensive heart disease with heart failure; L97.414 Non-pressure chronic ulcer of right heel and midfoot with necrosis of bone; L03.115 Cellulitis of right lower limb; B95.61 Methicillin susceptible Staphylococcus aureus infection as the cause of diseases classified elsewhere; B95.4 Other streptococcus as the cause of diseases classified elsewhere; B96.20 Unspecified Escherichia coli [E. coli] as the cause of diseases classified elsewhere
CPT/HCPCS: 2NASP; 75618; 87070; 87075; 87184; 36592; 71045; 73620-RT; 82436; 87040; 87071; 87147; 88304; 93005; 93010; 97116-GO; 97161-GP; C1769; J0690; J0696; J1644; J1815; J2001

== ENCOUNTER → 2017-10-27 | Day surgery (SDC) | payer OTHER ==
[~2017-10-27] VITALS: Ht 180.3 cm; Wt 138.3 kg
[~2017-10-27] MED LIST changes: +CEFTRIAXONE2 G2 IV; +CLOPIDOGREL75 M1 PO; +LISINOPRIL5 M1 PO; +NORVASC2.5 M1 PO; +PERCOCET 5-3251 EACH PO; +PRINIVIL20 M1 PO; +TRAMADOL HCL50 M1 PO; +TYLENOL WITH C1 EACH PO
--- NOTE | 2017-10-27 07:10 | History & Physical Pre-Op ---
General Information and HPI History of Present Illness: Mp is a 57-year-old diabetic male with a history of a nonhealing ulcer to his plantar right heel. The patient also has a right heel osteomyelitis which likely failed an incomplete course of outpatient IV antibiotics. The patient apparently missed and unknown number of outpatient doses of antibiotic, however was difficult to establish the number of this doses as the infusion nurses record 15 minutes doses and the patient insists that only 4-5 doses were missed. In any event, the patient was also noncompliant with postoperative recommendations for nonweightbearing and persisted and ambulating on the foot so that he can continue working. This was however mitigated with the use of a total contact cast. Allergies/Medications Allergies: Coded Allergies: No Known Allergies (10/22/17) Home Med list Amlodipine (Norvasc) 2.5 MG TABLET 7.5 MG PO DAILY HTN Cholecalciferol (Vitamin D3) 1,000 UNIT TABLET 1 TAB PO DAILY VITAMIN SUPPORT (Reported) Clopidogrel Bisulfate (Clopidogrel) 75 MG TABLET 1 TAB PO DAILY BLOOD THINNER (Reported) Glimepiride (Amaryl) 4 MG TABLET 1 TAB PO DAILY DIABETES (Reported) Sitagliptin Phosphate (Januvia) 100 MG TABLET 1 TAB PO DAILY DIABETES ( Reported) Tramadol HCl 50 MG TABLET 50 MG PO Q8P PRN PAIN 7-10 . 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 FATHER Relation not specified for: FH: diabetes mellitus Psychosocial History Services at Home None Review of Systems Review of Systems: Unremarkable except for that noted to present illness Exam & Diagnostic Data Physical Exam: 5 cm x 5 cm Tello grade 3 ulceration noted to the plantar aspect of the right heel. There is slough overlying a mixed granular fibrotic wound bed. There is partially 3 cm of undermining noted laterally. No surrounding cellulitis noted. Moderate amount of serous drainage identified. No exposed bone identified. No crepitus or fluctuance identified. Assessment/Plan Assessment/Plan: Persistent right heel osteomyelitis. A lengthy discussion reviewing both surgical and conservative options was held the patient at bedside and the patient elects to go forward with surgery despite the risks. As Ranked By This Provider Problem List: 1. Osteomyelitis Attending MD Review Statement Attending Statement Attending MD Statement: examined this patient
--- NOTE | 2017-10-27 10:10 | Operative Report ---
Operative/Inv Procedure Report Surgery Date: 10/27/17 Name of Procedure: 1 open incision and drainage deep to the D fashion with exposure of the flexor tendon and tendon sheath multiple sites right foot 2 bone biopsy right heel 3 intraoperative administration of ankle block anesthesia 4 excisional debridement Pre-Operative Diagnosis: 1 Open, necrotic wound right heel 2 Osteomyelitis right heel 3 Diabetic peripheral neuropathy Post-Operative Diagnosis: The same Estimated Blood Loss: less than 50ml Surgeon/Business Analytics Director: Chava Ward DPM Anesthesia: moderate sedation, block Operative/Procedure Note Note: After obtaining informed consent the patient was brought to the operating room placed on the operating table in supine position. The patient isn't securely fastened to the operating table utilizing safety belt. After administration of IV sedation, 10 mL of 0.5% Marcaine plain was infiltrated about the patient's right ankle. The right foot and ankle were scrubbed, prepped and draped in usual aseptic fashion. Attention directed plantar aspect the right heel, where a 6 cm x 6 cm Tello grade 3 ulceration was identified. There is partially 3 cm of undermining identified extending laterally. There was slough overlying a mixed granular fibrotic wound bed. There is exposed bone noted at the lateral central margin of the open wound. A 15 blade visualized sharply revised skin margins. Dissection was then carried down deep to the deep fascia with exposure of the flexor tendon and tendon sheath multiple sites, both proximal and distally. All necrotic, nonviable infected tissue sharply evacuated from the wound bed. Bone was harvested from the central lateral margin and specimen was sent for both microbiologic and pathologic inspection. Nipple was then irrigated with 3 L of normal sterile saline fissure 50,000 units of bacitracin. Following this, the foot was redraped and surgeon's top of gestation clean gloves. Any bleeding vessels identified were cauterized a lace encountered. Betadine saturated fluffs wound followed by the application EBD pad Kerlix and an Bp wrap. The patient was noted tolerate both procedure and anesthesia well and the patient was transported from the operating room to recovery with vital signs stable.
== END ==
LOC: STS 02:21 → SDA 07:00 → EDSTATUS 07:00
DX: E11.621 Type 2 diabetes mellitus with foot ulcer (principal); E11.40 Type 2 diabetes mellitus with diabetic neuropathy, unspecified; M86.171 Other acute osteomyelitis, right ankle and foot; L97.414 Non-pressure chronic ulcer of right heel and midfoot with necrosis of bone; Z98.62 Peripheral vascular angioplasty status; I48.91 Unspecified atrial fibrillation; Z79.01 Long term (current) use of anticoagulants; I50.9 Heart failure, unspecified; I10 Essential (primary) hypertension; Z79.84 Long term (current) use of oral hypoglycemic drugs; I73.89 Other specified peripheral vascular diseases
CPT/HCPCS: 87070; 87075; 87071; 87147; 88307; J0131; J0690; J2001; J2250; J2405

== ENCOUNTER → 2017-11-03 | Day surgery (SDC) | payer OTHER ==
[~2017-11-03] VITALS: Ht 180.3 cm; Wt 138.3 kg
--- NOTE | 2017-11-03 07:25 | History & Physical Pre-Op ---
General Information and HPI History of Present Illness: Toy is a 57-year-old diabetic with a long history of a nonhealing ulcer to the plantar aspect of his right heel. The patient has a documented osteomyelitis and a failed course of outpatient IV antibiotics. However, should be noted that he was unable to complete his course of antibiotics and return to the OR for a repeat debridement and bone biopsy. The patient will require a second debridement and the intraoperative application negative pressure wound therapy. Allergies/Medications Allergies: Coded Allergies: No Known Allergies () Home Med list Amlodipine (Norvasc) 2.5 MG TABLET 7.5 MG PO DAILY HTN Cholecalciferol (Vitamin D3) 1,000 UNIT TABLET 1 TAB PO DAILY VITAMIN SUPPORT (Reported) Clopidogrel Bisulfate (Clopidogrel) 75 MG TABLET 1 TAB PO DAILY BLOOD THINNER (Reported) Glimepiride (Amaryl) 4 MG TABLET 1 TAB PO DAILY DIABETES (Reported) Oxycodone HCl/Acetaminophen (Percocet 5-325 MG Tablet) 5 MG-325 MG TABLET 1 TAB PO BID PRN pain Sitagliptin Phosphate (Januvia) 100 MG TABLET 1 TAB PO DAILY DIABETES ( Reported) Tylenol With Codeine (Tylenol With Codeine #3 Tablet) 300 MG-30 MG TABLET 1 TAB PO Q4-6 PRN PRN pain (Reported) Past History Medical History Neurological: NONE EENT: NONE Cardiovascular: AFIB, diastolic CHF, hypertension Respiratory: NONE Gastrointestinal: NONE Hepatic: NONE Renal: NONE Musculoskeletal: peripheral neuropathy Psychiatric: NONE Endocrine: diabetes Blood Disorders: NONE Cancer(s): NONE 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 FATHER Relation not specified for: FH: diabetes mellitus Psychosocial History Services at Home None Review of Systems Review of Systems: Unremarkable except for that noted administration of illness Exam & Diagnostic Data Last 24 Hrs of Vital Signs/I&O Intake & Output 11/03 0800 06/12 0000 11/02 1600 Intake Total Output Total Balance Patient 305 lb Weight Physical Exam: Lungs clear bilaterally. Heart sounds rate and rhythm regular. Lower extremity physical exam demonstrates a Tello grade 3 ulceration the plantar aspect of his right heel. The lesion measures 6 cm x 6 cm with undermining identified extending to the medial margin. There is slough overlying a mixed granular fibrotic wound bed. Exposed bone is noted at the central aspect the exposed ulceration. Moderate amount of serous drainage identified. Assessment/Plan Assessment/Plan: Right heel osteomyelitis. A lengthy discussion reviewing both surgical and conservative options was held the patient at bedside and the patient elected to go forward with surgery despite the risks. As Ranked By This Provider Problem List: 1. Osteomyelitis Attending MD Review Statement Attending Statement Attending MD Statement: examined this patient
--- NOTE | 2017-11-03 14:38 | Operative Report ---
Operative/Inv Procedure Report Surgery Date: 11/03/17 Name of Procedure: 1 open incision and drainage deep to the deep fascia with exposure of the flexor tendon and tendon sheath multiple sites right heel 2 debridement of necrotic bone right heel 3 intraoperative administration of negative pressure wound therapy 4 intraoperative administration of ankle block anesthesia 5 excisional debridement Pre-Operative Diagnosis: 1 necrotic wound plantar right heel 2 osteomyelitis right heel 3 diabetic peripheral neuropathy Post-Operative Diagnosis: The same Estimated Blood Loss: less than 50ml Surgeon/Medical Equipment Sales: Sylvia GUTIERREZ,Chava Sinha DPM Anesthesia: moderate sedation, block Operative/Procedure Note Note: After obtaining informed consent the patient was brought to the operating room and placed on the operating table in the supine position. The patient isn't securely fastened to the operating table utilizing safety belt. After administration of IV sedation, 10 mL of 0.5% Marcaine plain was infiltrated about the patient's right ankle. The right foot and ankle then scrubbed, prepped and draped in usual aseptic manner. Attention directed plantar aspect the right foot, where a large necrotic was identified. A 15 blade visualized sharply revised skin margins. He dissection was then carried down deep to the D fashion with exposure of the flexor tendon and tendon sheath multiple sites, both proximal and distally. All necrotic, nonviable infected tissue sharply evacuated from bed. Exposed necrotic bone was also sharply debrided with curettage and rongeur. The open wound was then irrigated with 3 L of normal sterile saline infusion 50,000 units of bacitracin. Following this, the foot was redraped and the surgeon's top gloves were changed clean gloves. Any bleeding vessels identified were cauterized or ligated as encountered. Next, negative pressure wound therapy was placed followed by the application of 4 x 4' s, Kerlix and an Pb wrap. The patient was noted tolerate both procedure and anesthesia well and the patient was transported from the operating room to recovery with vital signs stable.
== END ==
LOC: STS 01:16
DX: E11.621 Type 2 diabetes mellitus with foot ulcer (principal); E11.42 Type 2 diabetes mellitus with diabetic polyneuropathy; L97.424 Non-pressure chronic ulcer of left heel and midfoot with necrosis of bone; M86.9 Osteomyelitis, unspecified; Z79.84 Long term (current) use of oral hypoglycemic drugs; I10 Essential (primary) hypertension; I73.9 Peripheral vascular disease, unspecified; I48.91 Unspecified atrial fibrillation; Z79.01 Long term (current) use of anticoagulants
CPT/HCPCS: J0690; J2001; J2250; J3490

== ENCOUNTER 2017-11-06 20:49 | Emergency (ER) | payer OTHER ==
[~2017-11-06] VITALS: Ht 180.3 cm; Wt 131.5 kg
[2017-11-06 21:08] VITALS: BP 137/88
--- NOTE | 2017-11-06 23:15 | ED GENERAL ADULT ---
History of Present Illness General Chief Complaint: General Adult Stated Complaint: "DIFFICULTY AMBULATING" Vital Signs & Intake/Output Vital Signs & Intake/Output Vital Signs Date Time Temp Pulse Resp B/P B/P Pulse O2 O2 Flow FiO2 Mean Ox Delivery Rate 11/06 2108 99.8 87 18 137/88 96 Room Air ED Intake and Output 11/07 0000 11/06 1200 Intake Total Output Total Balance Patient 290 lb Weight Weight Reported by Patient Measurement Method Allergies Coded Allergies: No Known Allergies () Reconcile Medications Amlodipine (Norvasc) 2.5 MG TABLET 7.5 MG PO DAILY HTN Cholecalciferol (Vitamin D3) 1,000 UNIT TABLET 1 TAB PO DAILY VITAMIN SUPPORT (Reported) Clopidogrel Bisulfate (Clopidogrel) 75 MG TABLET 1 TAB PO DAILY BLOOD THINNER (Reported) Glimepiride (Amaryl) 4 MG TABLET 1 TAB PO DAILY DIABETES (Reported) Oxycodone HCl/Acetaminophen (Percocet 5-325 MG Tablet) 5 MG-325 MG TABLET 1 TAB PO BID PRN pain Sitagliptin Phosphate (Januvia) 100 MG TABLET 1 TAB PO DAILY DIABETES ( Reported) Tylenol With Codeine (Tylenol With Codeine #3 Tablet) 300 MG-30 MG TABLET 1 TAB PO Q4-6 PRN PRN pain (Reported) Triage Note: PT FROM HOME C/O UNABLE TO AMBULATE X FEW HOURS. PT STATES HE WAS SEEN AT [place] FOR A RIGHT FOOT DEBRIDMENT, VAC APPLIED, PT ABLE TO AMBULATE WITH NO PROBLEMS. TODAY PT AWOKE FROM A NAP AND UNABLE TO AMBULATE SUPPORTING BODY WEIGHT. PT STATES HE FEEL BACK INTO THE COUCH FROM A STANDING POSITION LANDING ON HIS LOWER LUMBAR CAUSING PAIN 2/10. PT TO TRIAGE BY AMBULANCE, PROVIDED WITH A WHEELCHAIR. LOW GRADE TEMP 99.8. Triage Nurses Notes Reviewed? 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 FATHER Relation not specified for: FH: diabetes mellitus Review of Systems Review of Systems Constitutional: Reports: no symptoms. EENTM: Reports: no symptoms. Respiratory: Reports: no symptoms. Cardiovascular: Reports: no symptoms. GI: Reports: no symptoms. Genitourinary: Reports: no symptoms. Musculoskeletal: Reports: no symptoms. Skin: Reports: no symptoms. Neurological/Psychological: Reports: no symptoms. Hematologic/Endocrine: Reports: no symptoms. Immunologic/Allergic: Reports: no symptoms. All Other Systems: Reviewed and Negative Physical Exam Physical Exam Comments: Review of Systems - except as otherwise noted in HPI Physical Exam Physical Exam General Appearance: well developed/nourished, no apparent distress Head: atraumatic, normal appearance Eyes: Bilateral: normal appearance. Ears, Nose, Throat: normal pharynx, normal ENT inspection Neck: normal inspection, supple, full range of motion Respiratory: normal breath sounds, chest non-tender, no respiratory distress, quiet respiration, lungs clear Cardiovascular: regular rate/rhythm Gastrointestinal: normal bowel sounds, soft, non-tender, no organomegaly Back: normal inspection, normal range of motion Extremities: normal inspection, normal capillary refill, normal range of motion, no edema Neurologic/Psych: no motor/sensory deficits, awake, alert, oriented x 3 Skin: intact, normal color, warm/dry Departure Departure Condition: Stable Referrals: Kandace Beckett MD (PCP/Family) Departure Forms: Customer Survey General Discharge Information
== END 2017-11-06 22:00 | disposition admitted as inpatient to this hospital (09) ==
LOC: ERH 20:49
DX: R29.898 Other symptoms and signs involving the musculoskeletal system (principal)